=== PATIENT | female | born 1935 | race American Indian/Alaskan Native ===

== ENCOUNTER 2020-06-27 13:41 | Emergency (ER) | payer MEDICARE ==
[2020-06-27] MEDS ORDERED: ASPIRIN 325 MG TAB PO ONE (13:54)
[2020-06-27 14:26] LABS: Hematocrit 32.1 % (30.3-42.9); Hemoglobin 10.6 gm/dl (10.1-14.3); Mean Corpuscular HGB Conc 33 % (30-34); Mean Corpuscular Volume 82 fl (79-97); Platelet Count 233 K/mm3 (140-440); Red Blood Count 3.91 M/mm3 (3.65-5.03); Red Cell Distribution Width 18.4 % (13.2-15.2)
--- NOTE | 2020-06-27 14:42 | XRay Report ---
CHEST 1 VIEW INDICATION / CLINICAL INFORMATION: Chest Pain. COMPARISON: 05/05/2020 FINDINGS: SUPPORT DEVICES: None. HEART / MEDIASTINUM: Apparent cardiac enlargement likely secondary to oblique view. No significant ab normality. LUNGS / PLEURA: No significant pulmonary or pleural abnormality. No pneumothorax. ADDITIONAL FINDINGS: No significant additional findings. IMPRESSION: 1. No acute abnormality or significant change allowing for rotation. Signer Name: Helio Amor MD Signed: 06/27/2020 2:38 PM Workstation Name: [id number]
[2020-06-27 14:57] LABS: Blood Urea Nitrogen 17 mg/dL (7-17); Calcium 9.4 mg/dL (8.4-10.2); Hemolysis Index 0
[2020-06-27 15:07] LABS: BUN/Creatinine Ratio 24
[2020-06-27 15:12] LABS: Basophils % (Auto) 0.4 % (0.0-1.8); Eosinophils # (Auto) 0.1 K/mm3 (0.0-0.4); Eosinophils % (Auto) 2.2 % (0.0-4.3); Lymphocytes # (Auto) 0.9 K/mm3 (1.2-5.4); Lymphocytes % (Auto) 17.4 % (13.4-35.0); Monocytes # (Auto) 0.6 K/mm3 (0.0-0.8); Monocytes % (Auto) 11.6 % (0.0-7.3)
[2020-06-27] MEDS ORDERED: ASPIRIN 325 MG TAB ONE (19:34)
[2020-06-27 20:28] VITALS: BP 157/84
--- NOTE | 2020-06-27 20:44 | Emergency Department Report ---
ED General Adult HPI - General Chief complaint: Chest Pain Stated complaint: CHEST PAIN/SORENESS Time Seen by Provider: 06/27/20 19:30 Source: patient, family Mode of arrival: Wheelchair Limitations: Physical Limitation - History of Present Illness Initial comments: Patient presents to the emergency department the chief complaint of right-sided chest pain that started on Saturday. Patient states the pain actually got worse on Saturday and states that she initially felt some right-sided chest pain about a week or 2 ago when she pulled a muscle. Patient denies any shortness of breath, abdominal pain, or headache. Patient states she takes Lasix twice daily. -: Gradual Location: chest Radiation: non-radiation Severity scale (0 -10): 1 Quality: aching Consistency: constant Improves with: rest Worsens with: movement Associated Symptoms: denies other symptoms Treatments Prior to Arrival: none - Related Data Home Medications Medication Instructions Recorded Confirmed Last Taken Acetaminophen [Tylenol] 500 mg PO PRN PRN 05/09/20 05/09/20 05/23/20 Furosemide [Lasix TAB] 40 mg PO QDAY 05/09/20 05/09/20 05/23/20 Levothyroxine [Synthroid] 112 mcg PO QAM 05/09/20 05/09/20 05/24/20 06:00 Rosuvastatin Calcium [Crestor] 40 mg PO DAILY 05/09/20 05/09/20 05/23/20 Tamoxifen Citrate 20 mg PO DAILY 05/09/20 05/09/20 05/24/20 06:00 amLODIPine 10 mg PO DAILY 05/09/20 05/09/20 05/23/20 Previous Rx's Medication Instructions Recorded Last Taken Type Celecoxib [celeBREX] 200 mg PO BID #4 capsule 05/24/20 Unknown Rx Gabapentin 300 mg PO BID #4 capsule 05/24/20 Unknown Rx HYDROcodone/APAP 5-325 [[place] 1 each PO Q6HR PRN #10 tablet 05/24/20 Unknown Rx 5-325 mg TAB] Allergies Allergy/AdvReac Type Severity Reaction Status Date / Time No Known Allergies Allergy Verified 06/27/20 13:52 ED Review of Systems ROS: Stated complaint: CHEST PAIN/SORENESS Other details as noted in HPI Constitutional: denies: chills, fever Eyes: denies: eye pain, eye discharge, vision change ENT: denies: ear pain, throat pain Respiratory: denies: cough, shortness of breath, wheezing Cardiovascular: chest pain. 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; good functional status) Hx Liver Disease: No Hx Renal Disease: No Hx Arthritis: Yes Additional medical history: Hypothyroidism - Surgical History Hx Open Heart Surgery: Yes Hx Breast Surgery: Yes Additional Surgical History: Lumpectomy (2014), Triple pass surgery (year unknown) - Social History Smoking Status: Never Smoker Substance Use Type: None - Medications Home Medications: Home Medications Medication Instructions Recorded Confirmed Last Taken Type Acetaminophen [Tylenol] 500 mg PO PRN PRN 05/09/20 05/09/20 05/23/20 History Furosemide [Lasix TAB] 40 mg PO QDAY 05/09/20 05/09/20 05/23/20 History Levothyroxine [Synthroid] 112 mcg PO QAM 05/09/20 05/09/20 05/24/20 06:00 History Rosuvastatin Calcium [Crestor] 40 mg PO DAILY 05/09/20 05/09/20 05/23/20 History Tamoxifen Citrate 20 mg PO DAILY 05/09/20 05/09/20 05/24/20 06:00 History amLODIPine 10 mg PO DAILY 05/09/20 05/09/20 05/23/20 History Celecoxib [celeBREX] 200 mg PO BID #4 capsule 05/24/20 Unknown Rx Gabapentin 300 mg PO BID #4 capsule 05/24/20 Unknown Rx HYDROcodone/APAP 5-325 [[place] 1 each PO Q6HR PRN #10 tablet 05/24/20 Unknown Rx 5-325 mg TAB] ED Physical Exam - General Limitations: Physical Limitation General appearance: alert, in no apparent distress - Head Head exam: Present: atraumatic, normocephalic - Eye Eye exam: Present: normal appearance, PERRL, EOMI - ENT ENT exam: Present: mucous membranes moist - Neck Neck exam: Present: normal inspection - Respiratory Respiratory exam: Present: normal lung sounds bilaterally, chest wall tenderness (ttp right chest wall). Absent: respiratory distress - Cardiovascular Cardiovascular Exam: Present: regular rate, normal rhythm. Absent: systolic murmur, diastolic murmur, rubs, gallop - GI/Abdominal GI/Abdominal exam: Present: soft, normal bowel sounds. Absent: distended, tenderness - Extremities Exam Extremities exam: Present: normal inspection, other (Pitting edema) - Back Exam Back exam: Present: normal inspection - Neurological Exam Neurological exam: Present: alert, oriented X3, CN II-XII intact. Absent: motor sensory deficit - Psychiatric Psychiatric exam: Present: normal affect, normal mood - Skin Skin exam: Present: warm, dry, intact, normal color. Absent: rash ED Course Vital Signs 06/27/20 06/27/20 06/27/20 18:54 19:00 19:16 Temperature Pulse Rate 73 73 Respiratory 19 21 Rate Blood Pressure 151/83 151/83 Blood Pressure [Right] O2 Sat by Pulse 99 99 98 Oximetry 06/27/20 06/27/20 06/27/20 19:28 19:30 19:46 Temperature 99.1 F Pulse Rate 75 71 79 Respiratory 19 18 15 Rate Blood Pressure 151/83 151/83 151/83 Blood Pressure 151/83 [Right] O2 Sat by Pulse 99 98 99 Oximetry 06/27/20 06/27/20 20:00 20:16 Temperature Pulse Rate 72 72 Respiratory 21 20 Rate Blood Pressure 157/84 157/84 Blood Pressure [Right] O2 Sat by Pulse 99 100 Oximetry ED Medical Decision Making - Lab Data Result diagrams: 06/27/20 14:13 06/27/20 14:13 Lab Results 06/27/20 06/27/20 06/27/20 Range/Units 14:13 14:13 17:01 WBC 5.1 (4.5-11.0) K/mm3 RBC 3.91 (3.65-5.03) M/mm3 Hgb 10.6 (10.1-14.3) gm/dl Hct 32.1 (30.3-42.9) % MCV 82 (79-97) fl MCH 27 L (28-32) pg MCHC 33 (30-34) % RDW 18.4 H (13.2-15.2) % Plt Count 233 (140-440) K/mm3 Lymph % (Auto) 17.4 (13.4-35.0) % [place] % (Auto) 11.6 H (0.0-7.3) % Eos % (Auto) 2.2 (0.0-4.3) % Baso % (Auto) 0.4 (0.0-1.8) % Lymph # 0.9 L (1.2-5.4) K/mm3 [place] # 0.6 (0.0-0.8) K/mm3 Eos # 0.1 (0.0-0.4) K/mm3 Baso # 0.0 (0.0-0.1) K/mm3 Add Manual Diff Complete Seg Neutrophils % 68.4 (40.0-70.0) % Nucleated RBC % Not Reportable Seg Neutrophils # 3.5 (1.8-7.7) K/mm3 WBC Morphology Not Reportable Hypersegmented Neuts Not Reportable Hyposegmented Neuts Not Reportable Hypogranular Neuts Not Reportable Smudge Cells Not Reportable Toxic Granulation Not Reportable Toxic Vacuolation Not Reportable Dohle Bodies Not Reportable Pelger-Huet Anomaly Not Reportable Lukasz Rods Not Reportable Platelet Estimate Not Reportable Clumped Platelets Not Reportable Plt Clumps, EDTA Not Reportable Large Platelets Not Reportable Giant Platelets Not Reportable Platelet Satelliting Not Reportable Plt Morphology Comment Not Reportable RBC Morphology Not Reportable Dimorphic RBCs Not Reportable Polychromasia Not Reportable Hypochromasia Not Reportable Poikilocytosis Not Reportable Anisocytosis Not Reportable Microcytosis Not Reportable Macrocytosis Not Reportable Spherocytes Not Reportable Pappenheimer Bodies Not Reportable Sickle Cells Not Reportable Target Cells Not Reportable Tear Drop Cells Not Reportable Ovalocytes Not Reportable Helmet Cells Not Reportable Montemayor-Pace Bodies Not Reportable Keldron Rings Not Reportable [place] Cells Not Reportable Bite Cells Not Reportable Crenated Cell Not Reportable Elliptocytes Not Reportable Acanthocytes (Spur) Not Reportable Rouleaux Not Reportable Hemoglobin C Crystals Not Reportable Schistocytes Not Reportable Malaria parasites Not Reportable Shaan Bodies Not Reportable Hem Pathologist Commnt Not Reportable Sodium 143 (137-145) mmol/L Potassium 3.5 L (3.6-5.0) mmol/L Chloride 103.3 (98-107) mmol/L Carbon Dioxide 27 (22-30) mmol/L Anion Gap 16 mmol/L BUN 17 (7-17) mg/dL Creatinine 0.7 (0.6-1.2) mg/dL Estimated GFR > 60 ml/min BUN/Creatinine Ratio 24 % Glucose 115 H (65-100) mg/dL Calcium 9.4 (8.4-10.2) mg/dL Troponin T < 0.010 < 0.010 (0.00-0.029) ng/mL 06/27/20 Range/Units 19:42 WBC (4.5-11.0) K/mm3 RBC (3.65-5.03) M/mm3 Hgb (10.1-14.3) gm/dl Hct (30.3-42.9) % MCV (79-97) fl MCH (28-32) pg MCHC (30-34) % RDW (13.2-15.2) % Plt Count (140-440) K/mm3 Lymph % (Auto) (13.4-35.0) % [place] % (Auto) (0.0-7.3) % Eos % (Auto) (0.0-4.3) % Baso % (Auto) (0.0-1.8) % Lymph # (1.2-5.4) K/mm3 [place] # (0.0-0.8) K/mm3 Eos # (0.0-0.4) K/mm3 Baso # (0.0-0.1) K/mm3 Add Manual Diff Seg Neutrophils % (40.0-70.0) % Nucleated RBC % Seg Neutrophils # (1.8-7.7) K/mm3 WBC Morphology Hypersegmented Neuts Hyposegmented Neuts Hypogranular Neuts Smudge Cells Toxic Granulation Toxic Vacuolation Dohle Bodies Pelger-Huet Anomaly Lukasz Rods Platelet Estimate Clumped Platelets Plt Clumps, EDTA Large Platelets Giant Platelets Platelet Satelliting Plt Morphology Comment RBC Morphology Dimorphic RBCs Polychromasia Hypochromasia Poikilocytosis Anisocytosis Microcytosis Macrocytosis Spherocytes Pappenheimer Bodies Sickle Cells Target Cells Tear Drop Cells Ovalocytes Helmet Cells Montemayor-Pace Bodies Keldron Rings [place] Cells Bite Cells Crenated Cell Elliptocytes Acanthocytes (Spur) Rouleaux Hemoglobin C Crystals Schistocytes Malaria parasites Shaan Bodies Hem Pathologist Commnt Sodium (137-145) mmol/L Potassium (3.6-5.0) mmol/L Chloride (98-107) mmol/L Carbon Dioxide (22-30) mmol/L Anion Gap mmol/L BUN (7-17) mg/dL Creatinine (0.6-1.2) mg/dL Estimated GFR ml/min BUN/Creatinine Ratio % Glucose (65-100) mg/dL Calcium (8.4-10.2) mg/dL Troponin T < 0.010 (0.00-0.029) ng/mL - EKG Data -: EKG Interpreted by Me EKG shows normal: sinus rhythm Rate: normal - Radiology Data Radiology results: report reviewed - Medical Decision Making Discussed results with patient Critical care attestation.: If time is entered above; I have spent that time in minutes in the direct care of this critically ill patient, excluding procedure time. ED Disposition Clinical Impression: Nonspecific chest pain Disposition: DC-01 TO HOME OR SELFCARE Is pt being admited?: No Does the pt Need Aspirin: No Condition: Stable Instructions: Chest Pain (ED), Noncardiac Chest Pain (ED) Additional Instructions: return if worse Referrals: GIANLUCA FUENTESCHRISTOVALFORT HANCOCK MD LONA [Primary Care Provider] - 3-5 Days MARY MADRID MD [Staff Physician] - 3-5 Days Time of Disposition: 20:55
== END 2020-06-27 21:17 | disposition home or self-care (01) ==
LOC: ED 13:41
DX: R07.89 Other chest pain (principal)
CPT/HCPCS: 36415; 71045; 80048; 84484; 85007; 85025; 93005

== ENCOUNTER 2020-07-06 14:16 | Inpatient (IN) | payer MEDICARE ==
[2020-07-06] MEDS ORDERED: ASPIRIN 325 MG TAB PO ONE (14:34)
[2020-07-06 16:13] LABS: Basophils # (Auto) 0.1 K/mm3 (0.0-0.1); Basophils % (Auto) 0.9 % (0.0-1.8); Eosinophils # (Auto) 0.1 K/mm3 (0.0-0.4); Eosinophils % (Auto) 0.9 % (0.0-4.3); Hematocrit 30.7 % (30.3-42.9); Hemoglobin 10.4 gm/dl (10.1-14.3); Lymphocytes # (Auto) 0.8 K/mm3 (1.2-5.4); Mean Corpuscular HGB Conc 34 % (30-34); Mean Corpuscular Volume 83 fl (79-97); Monocytes # (Auto) 0.9 K/mm3 (0.0-0.8); Monocytes % (Auto) 12.6 % (0.0-7.3); Platelet Count 247 K/mm3 (140-440); Red Blood Count 3.73 M/mm3 (3.65-5.03); Red Cell Distribution Width 18.1 % (13.2-15.2)
--- NOTE | 2020-07-06 16:17 | XRay Report ---
CHEST 1 VIEW INDICATION: Chest Pain. COMPARISON: 06/27/2020 FINDINGS: Support devices: None. Heart: Within normal limits. Previous CABG changes are suspected. Lungs/Pleura: No acute air space or interstitial disease. Additional findings: None. IMPRESSION: No acute findings. Signer Name: Osiel Alexis Jr, MD Signed: 07/06/2020 4:13 PM Workstation Name: [id number]
[2020-07-06 16:46] LABS: Alanine Aminotransferase 8 units/L (7-56); Albumin 3.4 g/dL (3.9-5); BUN/Creatinine Ratio 21; Blood Urea Nitrogen 17 mg/dL (7-17); Calcium 9.4 mg/dL (8.4-10.2); Hemolysis Index 3
[2020-07-06 16:47] LABS: Bilirubin,Direct < 0.2 mg/dL (0-0.2)
[2020-07-06] MEDS ORDERED: MORPHINE 4 MG/1 ML INJ IV ONE (21:47)
[2020-07-06] MEDS ORDERED: ONDANSETRON 4 MG/2 ML INJ IV ONE (21:47)
--- NOTE | 2020-07-06 21:51 | Emergency Department Report ---
HPI - General Chief Complaint: Chest Pain Time Seen by Provider: 07/06/20 21:37 - HPI HPI: Room 21 The patient is an 85-year-old female present with a chief complaint of chest pain. Patient states for the past 2 to 3 days she has had substernal chest t ightness and bilateral lower extremity edema. Patient denies shortness of breath, nausea/vomiting or diaphoresis with her chest tightness. Patient denies cough or history of fever. Patient gives her chest tightness a score of 6-7/10. 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; good functional status) Hx Arthritis: Yes Additional medical history: Hypothyroidism - Surgical History Past Surgical History?: Yes Hx Open Heart Surgery: Yes Hx Breast Surgery: Yes Additional Surgical History: Lumpectomy (2014), Triple pass surgery (year unknown) - Family History Family history: no significant - Social History Smoking Status: Never Smoker Substance Use Type: None - Medications Home Medications: Home Medications Medication Instructions Recorded Confirmed Last Taken Type Acetaminophen [Tylenol] 500 mg PO PRN PRN 05/09/20 05/09/20 05/23/20 History Furosemide [Lasix TAB] 40 mg PO QDAY 05/09/20 05/09/20 05/23/20 History Levothyroxine [Synthroid] 112 mcg PO QAM 05/09/20 05/09/20 05/24/20 06:00 History Rosuvastatin Calcium [Crestor] 40 mg PO DAILY 05/09/20 05/09/20 05/23/20 History Tamoxifen Citrate 20 mg PO DAILY 05/09/20 05/09/20 05/24/20 06:00 History amLODIPine 10 mg PO DAILY 05/09/20 05/09/20 05/23/20 History Celecoxib [celeBREX] 200 mg PO BID #4 capsule 05/24/20 Unknown Rx Gabapentin 300 mg PO BID #4 capsule 05/24/20 Unknown Rx HYDROcodone/APAP 5-325 [[place] 1 each PO Q6HR PRN #10 tablet 05/24/20 Unknown Rx 5-325 mg TAB] traMADoL [Ultram] 50 mg PO Q6HR PRN #15 tablet 06/27/20 Unknown Rx ED Review of Systems ROS: Stated complaint: BODY PAIN Other details as noted in HPI Constitutional: no symptoms reported. denies: diaphoresis, fever Respiratory: denies: shortness of breath Cardiovascular: chest pain Endocrine: no symptoms reported Gastrointestinal: denies: nausea, vomiting Physical Exam - Physical Exam Vital Signs: Vital Signs 07/06/20 07/06/20 14:34 19:00 Temperature 97.8 F Pulse Rate 96 H 87 Respiratory 20 18 Rate Blood Pressure 153/70 170/80 [Right] O2 Sat by Pulse 98 100 Oximetry Physical Exam: GENERAL: The patient is well-developed well-nourished female lying on stretcher not appearing to be in acute distress. [] HEENT: Normocephalic. Atraumatic. Extraocular motions are intact. Patient has moist mucous membranes. NECK: Supple. Trachea midline CHEST/LUNGS: Clear to auscultation. There is no respiratory distress noted. HEART/CARDIOVASCULAR: Regular. There is no tachycardia. There is a 5/6 systolic murmur (patient states she has a history of heart murmur) ABDOMEN: Abdomen is soft, nontender. Patient has normal bowel sounds. There is no abdominal distention. SKIN: There is no rash. There is 2+ bilateral lower extremity pitting edema. There is no diaphoresis. NEURO: The patient is awake, alert, and oriented. The patient is cooperative. The patient has normal speech MUSCULOSKELETAL: There is no evidence of acute injury. ED Course Vital Signs 07/06/20 07/06/20 14:34 19:00 Temperature 97.8 F Pulse Rate 96 H 87 Respiratory 20 18 Rate Blood Pressure 153/70 170/80 [Right] O2 Sat by Pulse 98 100 Oximetry ED Medical Decision Making - Lab Data Result diagrams: 07/06/20 15:56 07/06/20 15:56 Laboratory Tests 07/06/20 07/06/20 07/06/20 15:56 15:56 18:10 WBC 7.0 RBC 3.73 Hgb 10.4 Hct 30.7 MCV 83 MCH 28 MCHC 34 RDW 18.1 H Plt Count 247 Lymph % (Auto) 11.0 L [place] % (Auto) 12.6 H Eos % (Auto) 0.9 Baso % (Auto) 0.9 Lymph # 0.8 L [place] # 0.9 H Eos # 0.1 Baso # 0.1 Seg Neutrophils % 74.6 H Seg Neutrophils # 5.2 Sodium 137 Potassium 3.8 Chloride 98.8 Carbon Dioxide 27 Anion Gap 15 BUN 17 Creatinine 0.8 Estimated GFR > 60 BUN/Creatinine Ratio 21 Glucose 134 H Calcium 9.4 Total Bilirubin 0.20 Direct Bilirubin < 0.2 AST 20 ALT 8 Alkaline Phosphatase 88 Troponin T < 0.010 < 0.010 NT-Pro-B Natriuret Pep Total Protein 7.6 Albumin 3.4 L Albumin/Globulin Ratio 0.8 07/06/20 07/06/20 18:10 21:54 WBC RBC Hgb Hct MCV MCH MCHC RDW Plt Count Lymph % (Auto) [place] % (Auto) Eos % (Auto) Baso % (Auto) Lymph # [place] # Eos # Baso # Seg Neutrophils % Seg Neutrophils # Sodium Potassium Chloride Carbon Dioxide Anion Gap BUN Creatinine Estimated GFR BUN/Creatinine Ratio Glucose Calcium Total Bilirubin Direct Bilirubin AST ALT Alkaline Phosphatase Troponin T < 0.010 NT-Pro-B Natriuret Pep 554.4 Total Protein Albumin Albumin/Globulin Ratio - EKG Data -: EKG Interpreted by Me EKG shows normal: sinus rhythm Rate: normal - EKG Data When compared to previous EKG there are: previous EKG unavailable Interpretation: other (No ischemic changes seen) - Radiology Data Radiology results: report reviewed (Chest x-ray), image reviewed (Chest x-ray) interpreted by me: Chest x-ray-no focal infiltrates, no pneumothorax [facility] [address] [place] [address] XRay Report Signed Patient: JACKIE SRIVASTAVA MR#: [id number] : 1935 Acct:[id number] Age/Sex: 85 / F ADM Date: 07/06/20 Loc: ED Attending Dr: Ordering Physician: ETTA SMITH MD Date of Service: 07/06/20 Procedure(s): XR chest 1V ap Accession Number(s): [id number] cc: ED MD LUIS Fluoro Time In Minutes: CHEST 1 VIEW INDICATION: Chest Pain. COMPARISON: 06/27/2020 FINDINGS: Support devices: None. Heart: Within normal limits. Previous CABG changes are suspected. Lungs/Pleura: No acute air space or interstitial disease. Additional findings: None. IMPRESSION: No acute findings. Signer Name: Osiel Alexis Jr, MD Signed: 07/06/2020 4:13 PM Workstation Name: [id number] Transcribed By: TTR Dictated By: OSIEL ALEXIS JR, MD Electronically Authenticated By: OSIEL ALEXIS JR, MD Signed Date/Time: 07/06/20 161 DD/ 11 TD/TT: - Differential Diagnosis ACS, pericarditis, CHF, GERD Critical care attestation.: If time is entered above; I have spent that time in minutes in the direct care of this critically ill patient, excluding procedure time. ED Disposition Clinical Impression: Chest pain Disposition: OP ADMIT IP TO THIS HOSP Is pt being admited?: Yes Does the pt Need Aspirin: Yes Condition: Fair Instructions: Chest Pain (ED) Referrals: PRIMARY CARE, [Primary Care Provider] - 3-5 Days Time of Disposition: 22:25 (Hospitalist paged (Dr Perez))
[2020-07-07] MEDS ORDERED: NITROGLYCERIN 2% OINT 1 GM TP ONE ×2 (00:08→00:42)
[2020-07-07] MEDS ORDERED: NITROGLYCERIN 0.4 MG TAB SUBL SL PRN (01:41)
[2020-07-07] MEDS ORDERED: ONDANSETRON 4 MG/2 ML INJ IV PRN (01:42)
[2020-07-07] MEDS: HEPARIN 5,000 UNIT/1 ML VIAL SUB-Q SCH ×3 (02:42→21:24)
--- NOTE | 2020-07-07 04:14 | History and Physical Report ---
History of Present Illness Date of examination: 07/07/20 Date of admission: 07/07/20 00:11 Chief complaint: CHEST PAIN History of present illness: History of presenting illness, patient is an 85-year-old female who has been having substernal chest tightness going on for few days and associated with ankle edema, there is no history of shortness of breath, fever or chills,cough, nausea or vomiting, or diaphoresis Past History Past Medical History: arthritis, CAD, hypertension, hypothyroidism Past Surgical History: CABG, Other (LUMPECTOMY) Medications and Allergies Allergies Allergy/AdvReac Type Severity Reaction Status Date / Time No Known Allergies Allergy Verified 06/27/20 13:52 Home Medications Medication Instructions Recorded Confirmed Last Taken Type Acetaminophen [Tylenol] 500 mg PO PRN PRN 05/09/20 05/09/20 05/23/20 History Furosemide [Lasix TAB] 40 mg PO QDAY 05/09/20 05/09/20 05/23/20 History Levothyroxine [Synthroid] 112 mcg PO QAM 05/09/20 05/09/20 05/24/20 06:00 History Rosuvastatin Calcium [Crestor] 40 mg PO DAILY 05/09/20 05/09/20 05/23/20 History Tamoxifen Citrate 20 mg PO DAILY 05/09/20 05/09/20 05/24/20 06:00 History amLODIPine 10 mg PO DAILY 05/09/20 05/09/20 05/23/20 History Celecoxib [celeBREX] 200 mg PO BID #4 capsule 05/24/20 Unknown Rx Gabapentin 300 mg PO BID #4 capsule 05/24/20 Unknown Rx HYDROcodone/APAP 5-325 [[place] 1 each PO Q6HR PRN #10 tablet 05/24/20 Unknown Rx 5-325 mg TAB] traMADoL [Ultram] 50 mg PO Q6HR PRN #15 tablet 06/27/20 Unknown Rx Active Meds: Active Medications Acetaminophen (Tylenol) 650 mg PO Q4H PRN PRN Reason: Headache Aspirin (Aspirin) 325 mg PO QDAY JESSICA Heparin Sodium (Porcine) (Heparin) 5,000 unit SUB-Q Q12HR JESSICA Last Admin: 07/07/20 02:42 Dose: 5,000 unit Documented by: Morphine Sulfate (Morphine) 2 mg IV Q3H PRN PRN Reason: Pain, Moderate (4-6) Nitroglycerin (Nitro-Bid 2%) 0.5 inch TP QIDNTG JESSICA; Protocol Nitroglycerin (Nitrostat) 0.4 mg SL .Q5MIN PRN PRN Reason: Chest Pain Ondansetron HCl (Zofran) 4 mg IV Q8H PRN PRN Reason: Nausea And Vomiting Review of Systems Constitutional: weakness, no weight loss, no weight gain, no fever, no chills, no sweats, no night sweats, no anorexia, no fatigue, no malaise Eyes: bilateral: other (NO BILATERAL EYE SYMPTOM) Ears, nose, mouth and throat: no ear pain, no nasal congestion, no nasal discharge, no mouth pain, no dysphagia, no hoarseness, no sore throat Breasts: deferred Cardiovascular: chest pain, edema, no orthopnea, no palpitations, no rapid/irregular heart beat, no syncope, no lightheadedness, no shortness of breath Respiratory: no cough, no shortness of breath, no dyspnea on exertion, no congestion, no wheezing Gastrointestinal: no abdominal pain, no nausea, no vomiting, no constipation, no coffee ground emesis, no hematochezia Genitourinary Female: no Menstruation: postmenopausal Rectal: no pain Musculoskeletal: no neck stiffness, no neck pain Integumentary: no rash, no pruritis, no redness, no sores, no jaundice, no boils, no lesions, no acne Neurological: weakness, no seizures, no syncope, no tremors, no ataxia, no vertigo, no headaches, no convulsions Psychiatric: no anxiety, no insomnia, no suicidal ideation, no depression Endocrine: no cold intolerance, no heat intolerance, no polyphagia, no polydipsia, no polyuria, no nocturia, no flushing, no palpatations Hematologic/Lymphatic: no easy bruising, no easy bleeding Allergic/Immunologic: no persistent infections, no anaphylaxis Exam - Constitutional Vitals: Temp Pulse Resp BP Pulse Ox 97.8 F 95 H 21 142/73 96 07/06/20 14:34 07/07/20 01:52 07/07/20 00:30 07/07/20 00:43 07/07/20 00:30 General appearance: Present: mild distress - EENT Eyes: Present: PERRL, EOM intact ENT: hearing intact, clear oral mucosa, dentition normal - Neck Neck: Present: supple, normal ROM. Absent: enlarged thyroid, carotid bruits - Respiratory Respiratory effort: normal - Cardiovascular Rhythm: regular Heart Sounds: Present: S1 & S2. Absent: gallop, systolic murmur, diastolic murmur, click - Extremities Extremities: no ischemia, No edema Peripheral Pulses: within normal limits - Abdominal General gastrointestinal: Present: soft, non-tender, non-distended. Absent: tender, distended, rigid, mass Female genitourinary: Present: deferred - Rectal Rectal Exam: deferred - Integumentary Integumentary: Present: clear, warm, dry - Musculoskeletal Musculoskeletal: strength equal bilaterally - Psychiatric Psychiatric: appropriate mood/affect - Neurologic Neurologic: CNII-XII intact HEART Score - HEART Score Risk factors: 1-2 risk factors Troponin: Troponin T < 0.010 ng/mL (0.00-0.029) 07/06/20 21:54 Troponin: < normal limit - Critical Actions Critical Actions: 0-3 pts:0.9-1.7%risk of adverse cardiac event.Candidate for discharge Results - Labs CBC & Chem 7: 07/06/20 15:56 07/06/20 15:56 Labs: Laboratory Last Values WBC 7.0 K/mm3 (4.5-11.0) 07/06/20 15:56 RBC 3.73 M/mm3 (3.65-5.03) 07/06/20 15:56 Hgb 10.4 gm/dl (10.1-14.3) 07/06/20 15:56 Hct 30.7 % (30.3-42.9) 07/06/20 15:56 MCV 83 fl (79-97) 07/06/20 15:56 MCH 28 pg (28-32) 07/06/20 15:56 MCHC 34 % (30-34) 07/06/20 15:56 RDW 18.1 % (13.2-15.2) H 07/06/20 15:56 Plt Count 247 K/mm3 (140-440) 07/06/20 15:56 Lymph % (Auto) 11.0 % (13.4-35.0) L 07/06/20 15:56 [place] % (Auto) 12.6 % (0.0-7.3) H 07/06/20 15:56 Eos % (Auto) 0.9 % (0.0-4.3) 07/06/20 15:56 Baso % (Auto) 0.9 % (0.0-1.8) 07/06/20 15:56 Lymph # 0.8 K/mm3 (1.2-5.4) L 07/06/20 15:56 [place] # 0.9 K/mm3 (0.0-0.8) H 07/06/20 15:56 Eos # 0.1 K/mm3 (0.0-0.4) 07/06/20 15:56 Baso # 0.1 K/mm3 (0.0-0.1) 07/06/20 15:56 Seg Neutrophils % 74.6 % (40.0-70.0) H 07/06/20 15:56 Seg Neutrophils # 5.2 K/mm3 (1.8-7.7) 07/06/20 15:56 Sodium 137 mmol/L (137-145) 07/06/20 15:56 Potassium 3.8 mmol/L (3.6-5.0) 07/06/20 15:56 Chloride 98.8 mmol/L (98-107) 07/06/20 15:56 Carbon Dioxide 27 mmol/L (22-30) 07/06/20 15:56 Anion Gap 15 mmol/L 07/06/20 15:56 BUN 17 mg/dL (7-17) 07/06/20 15:56 Creatinine 0.8 mg/dL (0.6-1.2) 07/06/20 15:56 Estimated GFR > 60 ml/min 07/06/20 15:56 BUN/Creatinine Ratio 21 % 07/06/20 15:56 Glucose 134 mg/dL (65-100) H 07/06/20 15:56 Calcium 9.4 mg/dL (8.4-10.2) 07/06/20 15:56 Total Bilirubin 0.20 mg/dL (0.1-1.2) 07/06/20 15:56 Direct Bilirubin < 0.2 mg/dL (0-0.2) 07/06/20 15:56 AST 20 units/L (5-40) 07/06/20 15:56 ALT 8 units/L (7-56) 07/06/20 15:56 Alkaline Phosphatase 88 units/L (35-129) 07/06/20 15:56 Troponin T < 0.010 ng/mL (0.00-0.029) 07/06/20 21:54 NT-Pro-B Natriuret Pep 554.4 pg/mL (0-900) 07/06/20 18:10 Total Protein 7.6 g/dL (6.3-8.2) 07/06/20 15:56 Albumin 3.4 g/dL (3.9-5) L 07/06/20 15:56 Albumin/Globulin Ratio 0.8 % 07/06/20 15:56 Moncada/IV: IV Catheter Type [Right INT / Saline Lock Antecubital] Assessment and Plan - Patient Problems (1) Chest pain Current Visit: Yes Status: Acute Plan to address problem: 1. TELEMETRY OBSERVATION 2. SERIAL CARDIAC ENZYMES 3. NPO 4. LEXISCAN STRESS TEST 5. I.V MORPHINE FOR PAIN 6. I.V ZOFRAN FOR NAUSEA AND VOMITING 7. ASPIRIN PO 8. TYLENOL FOR HEADACHE 9 NITROGLYCERIN PASTE AND SUB LIGUAL
[2020-07-07] MEDS: MORPHINE 2 MG/1 ML INJ IV PRN ×3 (06:03→12:10)
[2020-07-07] MEDS: NITROGLYCERIN 2% OINT 1 GM TP SCH ×4 (06:05→17:50)
[2020-07-07 06:38] LABS: Creatine Kinase MB 1.2 ng/mL (0.0-4.0)
[2020-07-07] MEDS ORDERED: REGADENOSON 0.4 MG/5 ML INJ IV ONE ×2 (08:51→08:56)
[2020-07-07] MEDS: ASPIRIN 325 MG TAB PO SCH (12:09)
--- NOTE | 2020-07-07 13:52 | Treadmill Report ---
THALLIUM STRESS TEST REPORT LEFT VENTRICLE: Left ventricular chamber size is within normal spread. Perfusion study demonstrates normal apical thinning, otherwise homogeneous uptake of the tracer in all segments. Gated analysis demonstrates normal left ventricular systolic function, ejection fraction 70%. CONCLUSION: Normal myocardial perfusion study. JOB# [id number] CA/NTS
[2020-07-07 16:17] LABS: Creatine Kinase MB < 1.0 ng/mL (0.0-4.0)
[2020-07-07] MEDS: ACETAMINOPHEN 325 MG TAB PO PRN ×2 (16:34→21:44)
--- NOTE | 2020-07-07 17:07 | Progress Note ---
Assessment and Plan Assessment and plan: --Febrile illness: T-max: 101 F High suspicion for COVID Antipyretics, IV fluids, blood and urine cultures Possible UTI , empiric antibiotics with Rocephin and supportive care We will rule out of COVID-19 Contact and droplet isolation Patient has multiple risk factors --Chest pain: Evaluate for acute coronary syndrome Patient had stress test today; normal myocardial perfusion study EF 70% cardiology echo, Chest x-ray no acute abnormality noted . Aspirin and statin --History of coronary artery disease status post CABG: Continue current cardiac medications --Hypertension; moderate control Continue current antihypertensives and PRN medications --Dyslipidemia; continue statin Low-cholesterol diet --Hypothyroidism; Synthroid Continue current management --Obesity; BMI 32.2 Counseling patient may need weight reduction when stable --DVT prophylaxis; Lovenox --Full CODE STATUS We will closely monitor the patient and adjust management as needed Plan of care reviewed with the patient and her nurse We will transfer the patient to [place] [id number] floor MedSur I discussed with patient's nurse History Interval history: I have seen and examined the patient at the bedside this morning Patient's chart and medications reviewed Patient was admitted with chest pain, underwent stress test Negative for ischemia, symptoms significantly improved Patient however spiked fever, temperature 101 F Vital signs reviewed Hospitalist Physical - Constitutional Vitals: Temp Pulse Resp BP Pulse Ox 101.7 F H 103 H 17 168/90 96 07/07/20 16:08 07/07/20 16:08 07/07/20 16:08 07/07/20 16:08 07/07/20 16:08 General appearance: Present: mild distress, well-nourished (Febrile), obese, other - EENT Eyes: Present: PERRL, EOM intact - Neck Neck: Present: supple, normal ROM - Respiratory Respiratory effort: normal Respiratory: bilateral: diminished, negative: rales, rhonchi, wheezing - Cardiovascular Rhythm: regular Heart Sounds: Present: S1 & S2 - Extremities Extremities: no ischemia, No edema Peripheral Pulses: within normal limits - Abdominal General gastrointestinal: soft, non-tender, non-distended, normal bowel sounds - Integumentary Integumentary: Present: clear, warm - Psychiatric Psychiatric: appropriate mood/affect, cooperative - Neurologic Neurologic: moves all extremities HEART Score - HEART Score Risk factors: 1-2 risk factors Troponin: Troponin T < 0.010 ng/mL (0.00-0.029) 07/07/20 14:57 Troponin: < normal limit - Critical Actions Critical Actions: 0-3 pts:0.9-1.7%risk of adverse cardiac event.Candidate for discharge Results - Labs CBC & Chem 7: 07/06/20 15:56 07/06/20 15:56 Labs: Laboratory Last Values WBC 7.0 K/mm3 (4.5-11.0) 07/06/20 15:56 RBC 3.73 M/mm3 (3.65-5.03) 07/06/20 15:56 Hgb 10.4 gm/dl (10.1-14.3) 07/06/20 15:56 Hct 30.7 % (30.3-42.9) 07/06/20 15:56 MCV 83 fl (79-97) 07/06/20 15:56 MCH 28 pg (28-32) 07/06/20 15:56 MCHC 34 % (30-34) 07/06/20 15:56 RDW 18.1 % (13.2-15.2) H 07/06/20 15:56 Plt Count 247 K/mm3 (140-440) 07/06/20 15:56 Lymph % (Auto) 11.0 % (13.4-35.0) L 07/06/20 15:56 [place] % (Auto) 12.6 % (0.0-7.3) H 07/06/20 15:56 Eos % (Auto) 0.9 % (0.0-4.3) 07/06/20 15:56 Baso % (Auto) 0.9 % (0.0-1.8) 07/06/20 15:56 Lymph # 0.8 K/mm3 (1.2-5.4) L 07/06/20 15:56 [place] # 0.9 K/mm3 (0.0-0.8) H 07/06/20 15:56 Eos # 0.1 K/mm3 (0.0-0.4) 07/06/20 15:56 Baso # 0.1 K/mm3 (0.0-0.1) 07/06/20 15:56 Seg Neutrophils % 74.6 % (40.0-70.0) H 07/06/20 15:56 Seg Neutrophils # 5.2 K/mm3 (1.8-7.7) 07/06/20 15:56 Sodium 137 mmol/L (137-145) 07/06/20 15:56 Potassium 3.8 mmol/L (3.6-5.0) 07/06/20 15:56 Chloride 98.8 mmol/L (98-107) 07/06/20 15:56 Carbon Dioxide 27 mmol/L (22-30) 07/06/20 15:56 Anion Gap 15 mmol/L 07/06/20 15:56 BUN 17 mg/dL (7-17) 07/06/20 15:56 Creatinine 0.8 mg/dL (0.6-1.2) 07/06/20 15:56 Estimated GFR > 60 ml/min 07/06/20 15:56 BUN/Creatinine Ratio 21 % 07/06/20 15:56 Glucose 134 mg/dL (65-100) H 07/06/20 15:56 Calcium 9.4 mg/dL (8.4-10.2) 07/06/20 15:56 Total Bilirubin 0.20 mg/dL (0.1-1.2) 07/06/20 15:56 Direct Bilirubin < 0.2 mg/dL (0-0.2) 07/06/20 15:56 AST 20 units/L (5-40) 07/06/20 15:56 ALT 8 units/L (7-56) 07/06/20 15:56 Alkaline Phosphatase 88 units/L (35-129) 07/06/20 15:56 Total Creatine Kinase 64 units/L (30-135) 07/07/20 14:57 CK-MB (CK-2) < 1.0 ng/mL (0.0-4.0) 07/07/20 14:57 CK-MB (CK-2) Rel Index 1.5 (0-4) 07/07/20 14:57 Troponin T < 0.010 ng/mL (0.00-0.029) 07/07/20 14:57 NT-Pro-B Natriuret Pep 554.4 pg/mL (0-900) 07/06/20 18:10 Total Protein 7.6 g/dL (6.3-8.2) 07/06/20 15:56 Albumin 3.4 g/dL (3.9-5) L 07/06/20 15:56 Albumin/Globulin Ratio 0.8 % 07/06/20 15:56 Moncada/IV: IV Catheter Type [Right INT / Saline Lock Antecubital] Active Medications - Current Medications Current Medications: Generic Name Dose Route Start Last Admin Trade Name Freq PRN Reason Stop Dose Admin Acetaminophen 650 mg 07/07/20 01:43 07/07/20 16:34 Tylenol PO 650 mg Q4H PRN Administration Headache Aspirin 325 mg 07/07/20 10:00 07/07/20 12:09 Aspirin PO 325 mg QDAY JESSICA Administration Heparin Sodium (Porcine) 5,000 unit 07/07/20 01:45 07/07/20 12:10 Heparin SUB-Q 5,000 unit Q12HR JESSICA Administration Morphine Sulfate 2 mg 07/07/20 01:42 07/07/20 12:10 Morphine IV 2 mg Q3H PRN Administration Pain, Moderate (4-6) Nitroglycerin 0.5 inch 07/07/20 06:00 07/07/20 16:27 Nitro-Bid 2% TP Not Given QIDNTG COUNT INCLUDES THE [facility] Protocol Nitroglycerin 0.4 mg 07/07/20 01:41 Nitrostat SL .Q5MIN PRN Chest Pain Ondansetron HCl 4 mg 07/07/20 01:42 Zofran IV Q8H PRN Nausea And Vomiting
[2020-07-07 20:25] LABS: C-Reactive Protein 13.2 mg/dL (0.00-1.30)
[2020-07-07] MEDS: GABAPENTIN 300 MG CAP PO SCH (21:24)
[2020-07-07] MEDS: traMADol 50 MG TAB PO PRN (21:24)
[2020-07-08] MEDS: NITROGLYCERIN 2% OINT 1 GM TP SCH ×4 (06:59→18:47)
[2020-07-08] MEDS: ASPIRIN 325 MG TAB PO SCH (10:09)
[2020-07-08] MEDS: FUROSEMIDE 40 MG TAB PO SCH (10:09)
[2020-07-08] MEDS: amLODIPine 10 MG TAB PO SCH (10:09)
[2020-07-08] MEDS: HEPARIN 5,000 UNIT/1 ML VIAL SUB-Q SCH ×2 (10:09→21:00)
[2020-07-08] MEDS: GABAPENTIN 300 MG CAP PO SCH ×2 (10:09→21:00)
[2020-07-08] MEDS: traMADol 50 MG TAB PO PRN ×2 (10:10→21:00)
[2020-07-08] MEDS: cefTRIAXone/NS 1 GM/50 ML 1 GM/50 ML BAG IV SCH (10:11)
[2020-07-08] MEDS: TAMOXIFEN CITRATE 20 MG PO SCH (10:15)
[2020-07-08] MEDS: NON-FORMULARY EACH (Rosuvastatin Calcium [Crestor] 40 MG) PO SCH (10:15)
[2020-07-08] MEDS: LEVOTHYROXINE 112 MCG TAB PO SCH (10:15)
[2020-07-08] MEDS ORDERED: SODIUM CHLORIDE 0.9% 250ML 250 ML ONE (10:21)
--- NOTE | 2020-07-08 16:18 | Consultation ---
History of Present Illness - Reason for Consult Consult date: 07/08/20 - History of Present Illness 85-year-old female past medical history arthritis, CAD, hypertension admitted to the hospital with substernal chest tightness. She also complains of ankle edema, and her symptoms began 3 days prior to admission. She otherwise denies any symptoms such as shortness of breath, fevers, chills. Febrile to 101.7 with a normal white count. COVID-19 testing negative. Currently seeing ceftriaxone. Blood cultures currently pending. Imaging personally reviewed: Chest x-ray: No acute abnormality Review of Systems: Bold if positive, otherwise negative General: fevers, chills, rigors HEENT: visual disturbance, diplopia, eye pain Respiratory: cough, sputum, hemoptysis, shortness of breath Cardiovascular: chest pain, syncope Gastrointestinal: nausea, vomiting, diarrhea, abdominal pain Genitourinary: dysuria, hematuria, flank pain Musculoskeletal: neck pain, back pain, joint pain, edema Neurologic: headaches, seizures Hematologic: easy bruising or bleeding Endocrine: night sweats, acute weight loss Skin: rash, jaundice, redness Psychiatric: suicidal, homicidal ideation Past History Past Medical History: arthritis, CAD, hypertension, hypothyroidism Past Surgical History: CABG, Other (LUMPECTOMY) Medications and Allergies Allergies Allergy/AdvReac Type Severity Reaction Status Date / Time No Known Allergies Allergy Verified 06/27/20 13:52 Home Medications Medication Instructions Recorded Confirmed Last Taken Type Acetaminophen [Tylenol] 500 mg PO PRN PRN 05/09/20 05/09/20 05/23/20 History Furosemide [Lasix TAB] 40 mg PO QDAY 05/09/20 05/09/20 05/23/20 History Levothyroxine [Synthroid] 112 mcg PO QAM 05/09/20 05/09/20 05/24/20 06:00 History Rosuvastatin Calcium [Crestor] 40 mg PO DAILY 05/09/20 05/09/20 05/23/20 History Tamoxifen Citrate 20 mg PO DAILY 05/09/20 05/09/20 05/24/20 06:00 History amLODIPine 10 mg PO DAILY 05/09/20 05/09/20 05/23/20 History Celecoxib [celeBREX] 200 mg PO BID #4 capsule 05/24/20 Unknown Rx Gabapentin 300 mg PO BID #4 capsule 05/24/20 Unknown Rx HYDROcodone/APAP 5-325 [[place] 1 each PO Q6HR PRN #10 tablet 05/24/20 Unknown Rx 5-325 mg TAB] traMADoL [Ultram] 50 mg PO Q6HR PRN #15 tablet 06/27/20 Unknown Rx Active Meds: Active Medications Acetaminophen (Tylenol) 650 mg PO Q4H PRN PRN Reason: Headache Last Admin: 07/07/20 21:44 Dose: 650 mg Documented by: Amlodipine Besylate (Amlodipine) 10 mg PO DAILY [facility] Last Admin: 07/08/20 10:09 Dose: 10 mg Documented by: Aspirin (Aspirin) 325 mg PO QDAY [facility] Last Admin: 07/08/20 10:09 Dose: 325 mg Documented by: Furosemide (Lasix) 40 mg PO QDAY [facility] Last Admin: 07/08/20 10:09 Dose: 40 mg Documented by: Gabapentin (Gabapentin) 300 mg PO BID [facility] Last Admin: 07/08/20 10:09 Dose: 300 mg Documented by: Heparin Sodium (Porcine) (Heparin) 5,000 unit SUB-Q Q12HR [facility] Last Admin: 07/08/20 10:09 Dose: 5,000 unit Documented by: Ceftriaxone Sodium (Rocephin/Ns 1 Gm/50 Ml) 1 gm in 50 mls @ 100 mls/hr IV Q24HR [facility]; Protocol Last Admin: 07/08/20 10:11 Dose: 100 mls/hr Documented by: Levothyroxine Sodium (Synthroid) 112 mcg PO QAM@0600 [facility] Last Admin: 07/08/20 10:15 Dose: 112 mcg Documented by: Miscellaneous Medication (Rosuvastatin Calcium [Crestor]) 40 mg PO DAILY [facility] Last Admin: 07/08/20 10:15 Dose: 40 mg Documented by: Miscellaneous Medication (Tamoxifen Citrate [Tamoxifen Citrate]) 20 mg PO DAILY [facility] Last Admin: 07/08/20 10:15 Dose: 20 mg Documented by: Morphine Sulfate (Morphine) 2 mg IV Q3H PRN PRN Reason: Pain, Moderate (4-6) Last Admin: 07/07/20 12:10 Dose: 2 mg Documented by: Nitroglycerin (Nitro-Bid 2%) 0.5 inch TP QIDNTG [facility]; Protocol Last Admin: 07/08/20 13:47 Dose: 0.5 inch Documented by: Nitroglycerin (Nitrostat) 0.4 mg SL .Q5MIN PRN PRN Reason: Chest Pain Ondansetron HCl (Zofran) 4 mg IV Q8H PRN PRN Reason: Nausea And Vomiting Tramadol HCl (Ultram) 50 mg PO Q6HR PRN PRN Reason: PAIN Last Admin: 07/08/20 10:10 Dose: 50 mg Documented by: Physical Examination - Physical Exam Narrative exam: Physical exam deferred due to PPE conservation strategy. Please refer to primary team's note. - Constitutional Vitals: Vital Signs Temp Pulse Resp BP Pulse Ox 100.1 F H 90 18 105/61 93 07/08/20 11:47 07/08/20 11:47 07/08/20 11:47 07/08/20 11:47 07/08/20 11:47 Temperature -Last 24 Hours Temperature 100.1 F Temperature 98.9 F Temperature 98.9 F Results - Labs CBC & Chem 7: 07/06/20 15:56 07/06/20 15:56 Labs: Abnormal lab results 07/07/20 07/07/20 Range/Units 19:11 19:11 D-Dimer 1419.53 H (0-234) ng/mlDDU Lactate Dehydrogenase 274 H (91-180) units/L C-Reactive Protein 13.20 H (0.00-1.30) mg/dL Assessment and Plan Cultures: Blood culture 07/07/2020 pending A/P: 85-year-old female past medical history arthritis, CAD, hypertension admitted with chest pains and found to be febrile. #Chest pain: Concern for PE given elevated d-dimer. Pending CT angio of the chest, however on first attempt patient had no IV access available. #COVID-19 PUI: Given fevers and possible PE recommend retesting for COVID-19. The symptoms could simply related to a pulmonary lesion, given the prevalence of the interplay of these two recommend ensuring she is not covered infected. #Fevers: As above Recs: -Ordered procalcitonin for a.m. -Obtain CT angio of the chest when IV access available. -Retest for COVID-19. -Continue ceftriaxone for now, likely to stop shortly if other etiology found Dr. Hernandez covering this weekend Thank you for the consult, we will continue to follow. Javon Stern MD [facility] M: [phone] O: [phone] F: [phone]
--- NOTE | 2020-07-08 16:34 | Progress Note ---
Assessment and Plan - Patient Problems (1) Person under investigation for COVID-19 Current Visit: Yes Status: Ruled-out Plan to address problem: - High suspicion for COVID given febrile and elevated markers; Possible UTI , empiric antibiotics with Rocephin - Antipyretics - 07/08 blood and urine cultures pending (2) Chest pain Current Visit: Yes Status: Acute Plan to address problem: - 07/07 stress test shows normal myocardial perfusion study - 07/07 Echo shows EF 70% - 07/06 Chest x-ray shows no acute abnormality - ASA and statin therapy - PRN EKG (3) Febrile Current Visit: Yes Status: Acute Plan to address problem: - Febrile to tmax 101.7 on 07/07 - Supportive care - BC and UC pending - COVID PCR (-) - On antibiotic therapy (4) Hypertension Current Visit: Yes Status: Chronic Plan to address problem: - Continue current antihypertensives and PRN medications - BP monitoring per protocol (5) Hypothyroidism Current Visit: Yes Status: Chronic Plan to address problem: - Continue home levothyroxine (6) CAD (coronary artery disease) Current Visit: Yes Status: Acute Plan to address problem: - Continue home statin therapy (7) Obesity Current Visit: Yes Status: Acute Plan to address problem: - Weight loss counseling provided (8) DVT prophylaxis Current Visit: No Status: Acute Plan to address problem: - SCDS to BLE while in bed - Heparin subq History Interval history: This is a 59-year-old female with arthritis, CAD, HTN, hypothyroidism, 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 In the emergency department labs were insignificant other than a BNP of 255 and her chest x-ray was negative for any acute process. She was scheduled for a Lexiscan on 07/07. On 07/07 she was febrile and given her symptoms she was transferred to the [facility] floor to rule out COVID 19. Her d-dimer was elevated at 1419 along with other COVID related labs. This morning a CTA chest was ordered however there is a delay performing the test related to lack of proper IV access. This morning infectious disease was consulted. -07/07: Lexiscan, transfer to [facility] for rule out COVID 19 -07/08: COVID-19 PCR negative Hospitalist Physical - Constitutional Vitals: Temp Pulse Resp BP Pulse Ox 100.1 F H 90 18 105/61 93 07/08/20 11:47 07/08/20 11:47 07/08/20 11:47 07/08/20 11:47 07/08/20 11:47 General appearance: Present: no acute distress, well-nourished (Febrile), obese - EENT Eyes: Present: PERRL, EOM intact ENT: hearing intact - Neck Neck: Present: supple, normal ROM - Respiratory Respiratory effort: normal Respiratory: bilateral: diminished - Cardiovascular Rhythm: regular Heart Sounds: Present: S1 & S2. Absent: systolic murmur, diastolic murmur - Extremities Extremities: no ischemia, pulses intact, pulses symmetrical, normal temperature, normal color, Full ROM Extremity abnormal: edema (To right wrist and right lower extremity) Peripheral Pulses: within normal limits - Abdominal General gastrointestinal: soft, non-tender, non-distended, normal bowel sounds - Integumentary Integumentary: Present: clear, warm, dry - Psychiatric Psychiatric: cooperative - Neurologic Neurologic: CNII-XII intact, no focal deficits, moves all extremities - Allied Health Allied health notes reviewed: nursing HEART Score - HEART Score Risk factors: 1-2 risk factors Troponin: Troponin T < 0.010 ng/mL (0.00-0.029) 07/07/20 14:57 Troponin: < normal limit - Critical Actions Critical Actions: 0-3 pts:0.9-1.7%risk of adverse cardiac event.Candidate for discharge Results - Labs CBC & Chem 7: 07/06/20 15:56 07/06/20 15:56 Labs: Laboratory Last Values WBC 7.0 K/mm3 (4.5-11.0) 07/06/20 15:56 RBC 3.73 M/mm3 (3.65-5.03) 07/06/20 15:56 Hgb 10.4 gm/dl (10.1-14.3) 07/06/20 15:56 Hct 30.7 % (30.3-42.9) 07/06/20 15:56 MCV 83 fl (79-97) 07/06/20 15:56 MCH 28 pg (28-32) 07/06/20 15:56 MCHC 34 % (30-34) 07/06/20 15:56 RDW 18.1 % (13.2-15.2) H 07/06/20 15:56 Plt Count 247 K/mm3 (140-440) 07/06/20 15:56 Lymph % (Auto) 11.0 % (13.4-35.0) L 07/06/20 15:56 [place] % (Auto) 12.6 % (0.0-7.3) H 07/06/20 15:56 Eos % (Auto) 0.9 % (0.0-4.3) 07/06/20 15:56 Baso % (Auto) 0.9 % (0.0-1.8) 07/06/20 15:56 Lymph # 0.8 K/mm3 (1.2-5.4) L 07/06/20 15:56 [place] # 0.9 K/mm3 (0.0-0.8) H 07/06/20 15:56 Eos # 0.1 K/mm3 (0.0-0.4) 07/06/20 15:56 Baso # 0.1 K/mm3 (0.0-0.1) 07/06/20 15:56 Seg Neutrophils % 74.6 % (40.0-70.0) H 07/06/20 15:56 Seg Neutrophils # 5.2 K/mm3 (1.8-7.7) 07/06/20 15:56 D-Dimer 1419.53 ng/mlDDU (0-234) H 07/07/20 19:11 Sodium 137 mmol/L (137-145) 07/06/20 15:56 Potassium 3.8 mmol/L (3.6-5.0) 07/06/20 15:56 Chloride 98.8 mmol/L (98-107) 07/06/20 15:56 Carbon Dioxide 27 mmol/L (22-30) 07/06/20 15:56 Anion Gap 15 mmol/L 07/06/20 15:56 BUN 17 mg/dL (7-17) 07/06/20 15:56 Creatinine 0.8 mg/dL (0.6-1.2) 07/06/20 15:56 Estimated GFR > 60 ml/min 07/06/20 15:56 BUN/Creatinine Ratio 21 % 07/06/20 15:56 Glucose 134 mg/dL (65-100) H 07/06/20 15:56 Calcium 9.4 mg/dL (8.4-10.2) 07/06/20 15:56 Ferritin 186.2 ng/mL (10.0-200.0) 07/07/20 19:11 Total Bilirubin 0.20 mg/dL (0.1-1.2) 07/06/20 15:56 Direct Bilirubin < 0.2 mg/dL (0-0.2) 07/06/20 15:56 AST 20 units/L (5-40) 07/06/20 15:56 ALT 8 units/L (7-56) 07/06/20 15:56 Alkaline Phosphatase 88 units/L (35-129) 07/06/20 15:56 Lactate Dehydrogenase 274 units/L (91-180) H 07/07/20 19:11 Total Creatine Kinase 64 units/L (30-135) 07/07/20 14:57 CK-MB (CK-2) < 1.0 ng/mL (0.0-4.0) 07/07/20 14:57 CK-MB (CK-2) Rel Index 1.5 (0-4) 07/07/20 14:57 Troponin T < 0.010 ng/mL (0.00-0.029) 07/07/20 14:57 C-Reactive Protein 13.20 mg/dL (0.00-1.30) H 07/07/20 19:11 NT-Pro-B Natriuret Pep 554.4 pg/mL (0-900) 07/06/20 18:10 Total Protein 7.6 g/dL (6.3-8.2) 07/06/20 15:56 Albumin 3.4 g/dL (3.9-5) L 07/06/20 15:56 Albumin/Globulin Ratio 0.8 % 07/06/20 15:56 Coronavirus (PCR) Negative (Negative) 07/08/20 Unknown Microbiology: Microbiology 07/07/20 19:11 Peripheral/Venous Blood Culture - Preliminary Culture in Progress 07/07/20 19:11 Peripheral/Venous Blood Culture - Preliminary Culture in Progress [place]/IV: Voiding Method Toilet IV Catheter Type [Right INT / Saline Lock Antecubital] Active Medications - Current Medications Current Medications: Generic Name Dose Route Start Last Admin Trade Name Freq PRN Reason Stop Dose Admin Acetaminophen 650 mg 07/07/20 01:43 07/07/20 21:44 Tylenol PO 650 mg Q4H PRN Administration Headache Amlodipine Besylate 10 mg 07/08/20 10:00 07/08/20 10:09 Amlodipine PO 10 mg DAILY JESSICA Administration Aspirin 325 mg 07/07/20 10:00 07/08/20 10:09 Aspirin PO 325 mg QDAY JESSICA Administration Furosemide 40 mg 07/08/20 10:00 07/08/20 10:09 Lasix PO 40 mg QDAY JESSICA Administration Gabapentin 300 mg 07/07/20 22:00 07/08/20 10:09 Gabapentin PO 300 mg BID JESSICA Administration Heparin Sodium (Porcine) 5,000 unit 07/07/20 01:45 07/08/20 10:09 Heparin SUB-Q 5,000 unit Q12HR JESSICA Administration Ceftriaxone Sodium 1 gm in 50 mls @ 100 mls/hr 07/08/20 10:00 07/08/20 10:11 Rocephin/Ns 1 Gm/50 Ml IV 100 mls/hr Q24HR JESSICA Administration Protocol Levothyroxine Sodium 112 mcg 07/08/20 10:00 07/08/20 10:15 Synthroid PO 112 mcg QAM@0600 JESSICA Administration Miscellaneous Medication 40 mg 07/08/20 10:00 07/08/20 10:15 Rosuvastatin Calcium [Crestor] PO 40 mg DAILY JESSICA Administration Miscellaneous Medication 20 mg 07/08/20 10:00 07/08/20 10:15 Tamoxifen Citrate [Tamoxifen Citrate] PO 20 mg DAILY JESSICA Administration Morphine Sulfate 2 mg 07/07/20 01:42 07/07/20 12:10 Morphine IV 2 mg Q3H PRN Administration Pain, Moderate (4-6) Nitroglycerin 0.5 inch 07/07/20 06:00 07/08/20 13:47 Nitro-Bid 2% TP 0.5 inch QIDNTG JESSICA Administration Protocol Nitroglycerin 0.4 mg 07/07/20 01:41 Nitrostat SL .Q5MIN PRN Chest Pain Ondansetron HCl 4 mg 07/07/20 01:42 Zofran IV Q8H PRN Nausea And Vomiting Tramadol HCl 50 mg 07/07/20 17:10 07/08/20 10:10 Ultram PO 50 mg Q6HR PRN Administration PAIN
[2020-07-08 21:42] LABS: Bacteria,Urine 1+ /HPF (Negative); Bilirubin,Urine NEG (Negative); Blood,Urine SM (Negative); Color,Urine Yellow (Yellow); Mucus,Urine 2+ /HPF
[2020-07-09] MEDS: LEVOTHYROXINE 112 MCG TAB PO SCH (05:24)
[2020-07-09] MEDS: NITROGLYCERIN 2% OINT 1 GM TP SCH ×4 (05:24→17:28)
[2020-07-09 05:25] LABS: Hematocrit 28.1 % (30.3-42.9); Hemoglobin 9.1 gm/dl (10.1-14.3); Mean Corpuscular HGB Conc 33 % (30-34); Mean Corpuscular Volume 83 fl (79-97); Platelet Count 263 K/mm3 (140-440); Red Blood Count 3.39 M/mm3 (3.65-5.03); Red Cell Distribution Width 17.8 % (13.2-15.2)
[2020-07-09 05:42] LABS: BUN/Creatinine Ratio 18; Blood Urea Nitrogen 14 mg/dL (7-17); Calcium 9.1 mg/dL (8.4-10.2); Hemolysis Index 4
[2020-07-09] MEDS: cefTRIAXone/NS 1 GM/50 ML 1 GM/50 ML BAG IV SCH (09:15)
[2020-07-09] MEDS: amLODIPine 10 MG TAB PO SCH (09:16)
[2020-07-09] MEDS: GABAPENTIN 300 MG CAP PO SCH ×2 (09:16→21:26)
[2020-07-09] MEDS: FUROSEMIDE 40 MG TAB PO SCH (09:16)
[2020-07-09] MEDS: ASPIRIN 325 MG TAB PO SCH (09:16)
[2020-07-09] MEDS: NON-FORMULARY EACH (Rosuvastatin Calcium [Crestor] 40 MG) PO SCH ×2 (10:00→21:26)
[2020-07-09] MEDS: HEPARIN 5,000 UNIT/1 ML VIAL SUB-Q SCH (10:00)
[2020-07-09] MEDS: TAMOXIFEN CITRATE 20 MG PO SCH ×2 (10:00→17:27)
--- NOTE | 2020-07-09 14:03 | Cat Scan Report ---
CTA CHEST WITH CONTRAST INDICATION / CLINICAL INFORMATION: MAIN. TECHNIQUE: Axial CT images were obtained through the chest after injection of IV contrast. 3 plane MIP and/or 3D reconstructions were produced. All CT scans at this location are performed using CT dose reduction f or ALARA by means of automated exposure control. COMPARISON: Chest radiograph 07/06/2020 FINDINGS: PULMONARY ARTERIES: Artifact from patient's arms at sides degrades quality of study decreasing sensit ivity at the level of the segmental arteries and below. No central filling defect. THORACIC AORTA: Moderate atherosclerotic calcification without acute abnormality. HEART: Multivessel coronary artery atherosclerotic change. MEDIASTINUM / BETINA: No significant abnormality. PLEURA: No pleural effusion. No pneumothorax. LUNGS: CTA technique obscures fine pulmonary parenchymal detail. No focal consolidation or mass. UPPER ABDOMEN: No acute findings. SKELETAL STRUCTURES: No significant osseous abnormality. ADDITIONAL FINDINGS: 3.5 x 3.2 x 3.4 cm heterogeneous cystic appearing focus in the right chest wall deep to the right breast tissue. IMPRESSION: 1. No CT evidence for central pulmonary embolism noting significant artifact as detailed above. 2. 3.5 cm heterogeneous cystic-appearing focus in the right chest wall deep to the right breast tissu e. Finding could represent seroma, hematoma, or abscess. Necrotic chest wall lymph node or primary ne oplasm not excluded. Consider further follow-up and evaluation as warranted. Signer Name: Helio Amor MD Signed: 07/09/2020 1:59 PM Workstation Name: [id number]
--- NOTE | 2020-07-09 14:12 | Progress Note ---
Assessment and Plan Assessment and plan: --Left shoulder pain[history of trauma] Left elbow pain[history of trauma] Patient has mild restricted and painful movements Will check x-ray left shoulder and left elbow Pain management Consider Ortho evaluation if needed --Febrile illness: T-max: 101 F/afebrile High suspicion for COVID/call with test negative Antipyretics, IV fluids, blood and urine cultures Possible UTI , empiric antibiotics with Rocephin and supportive care Contact and droplet isolation Patient has multiple risk factors --Chest pain: Evaluate for acute coronary syndrome Patient had stress test today; normal myocardial perfusion study EF 70% cardiology echo, Chest x-ray no acute abnormality noted . Aspirin and statin --History of coronary artery disease status post CABG: Continue current cardiac medications --Hypertension; moderate control Continue current antihypertensives and PRN medications --Dyslipidemia; continue statin Low-cholesterol diet --Hypothyroidism; Synthroid Continue current management --Obesity; BMI 32.2 Counseling patient may need weight reduction when stable --DVT prophylaxis; Lovenox --Full CODE STATUS We will closely monitor the patient and adjust management as needed COVID negative I discussed with patient's nurse History Interval history: I have seen and examined the patient at the bedside Patient's chart and medications reviewed Patient is COVID negative Complains of left shoulder left elbow pain Gives history of fall Alert awake oriented Vital signs noted Hospitalist Physical - Constitutional Vitals: Temp Pulse Resp BP Pulse Ox 100.0 F H 84 20 103/53 96 07/09/20 11:58 07/09/20 11:58 07/09/20 11:58 07/09/20 11:58 07/09/20 11:58 General appearance: Present: no acute distress, well-nourished (Febrile), obese - EENT Eyes: Present: PERRL, EOM intact - Neck Neck: Present: supple, normal ROM - Respiratory Respiratory effort: normal Respiratory: bilateral: diminished, negative: rales, rhonchi, wheezing - Cardiovascular Rhythm: regular Heart Sounds: Present: S1 & S2 - Extremities Extremities: abnormal (Left shoulder tenderness on movement, restricted painful movements) Extremity abnormal: other (Left elbow tenderness on palpation) - Abdominal General gastrointestinal: soft, non-tender, non-distended, normal bowel sounds - Integumentary Integumentary: Present: clear, warm - Psychiatric Psychiatric: appropriate mood/affect, cooperative - Neurologic Neurologic: CNII-XII intact, moves all extremities HEART Score - HEART Score Risk factors: 1-2 risk factors Troponin: Troponin T < 0.010 ng/mL (0.00-0.029) 07/07/20 14:57 Troponin: < normal limit - Critical Actions Critical Actions: 0-3 pts:0.9-1.7%risk of adverse cardiac event.Candidate for discharge Results - Labs CBC & Chem 7: 07/09/20 04:12 07/09/20 04:12 Labs: Laboratory Last Values WBC 7.0 K/mm3 (4.5-11.0) 07/09/20 04:12 RBC 3.39 M/mm3 (3.65-5.03) L 07/09/20 04:12 Hgb 9.1 gm/dl (10.1-14.3) L 07/09/20 04:12 Hct 28.1 % (30.3-42.9) L 07/09/20 04:12 MCV 83 fl (79-97) 07/09/20 04:12 MCH 27 pg (28-32) L 07/09/20 04:12 MCHC 33 % (30-34) 07/09/20 04:12 RDW 17.8 % (13.2-15.2) H 07/09/20 04:12 Plt Count 263 K/mm3 (140-440) 07/09/20 04:12 Lymph % (Auto) 11.0 % (13.4-35.0) L 07/06/20 15:56 [place] % (Auto) 12.6 % (0.0-7.3) H 07/06/20 15:56 Eos % (Auto) 0.9 % (0.0-4.3) 07/06/20 15:56 Baso % (Auto) 0.9 % (0.0-1.8) 07/06/20 15:56 Lymph # 0.8 K/mm3 (1.2-5.4) L 07/06/20 15:56 [place] # 0.9 K/mm3 (0.0-0.8) H 07/06/20 15:56 Eos # 0.1 K/mm3 (0.0-0.4) 07/06/20 15:56 Baso # 0.1 K/mm3 (0.0-0.1) 07/06/20 15:56 Seg Neutrophils % 74.6 % (40.0-70.0) H 07/06/20 15:56 Seg Neutrophils # 5.2 K/mm3 (1.8-7.7) 07/06/20 15:56 D-Dimer 1419.53 ng/mlDDU (0-234) H 07/07/20 19:11 Sodium 140 mmol/L (137-145) 07/09/20 04:12 Potassium 3.9 mmol/L (3.6-5.0) 07/09/20 04:12 Chloride 101.8 mmol/L (98-107) 07/09/20 04:12 Carbon Dioxide 25 mmol/L (22-30) 07/09/20 04:12 Anion Gap 17 mmol/L 07/09/20 04:12 BUN 14 mg/dL (7-17) 07/09/20 04:12 Creatinine 0.8 mg/dL (0.6-1.2) 07/09/20 04:12 Estimated GFR > 60 ml/min 07/09/20 04:12 BUN/Creatinine Ratio 18 % 07/09/20 04:12 Glucose 95 mg/dL (65-100) 07/09/20 04:12 Calcium 9.1 mg/dL (8.4-10.2) 07/09/20 04:12 Ferritin 186.2 ng/mL (10.0-200.0) 07/07/20 19:11 Total Bilirubin 0.20 mg/dL (0.1-1.2) 07/06/20 15:56 Direct Bilirubin < 0.2 mg/dL (0-0.2) 07/06/20 15:56 AST 20 units/L (5-40) 07/06/20 15:56 ALT 8 units/L (7-56) 07/06/20 15:56 Alkaline Phosphatase 88 units/L (35-129) 07/06/20 15:56 Lactate Dehydrogenase 274 units/L (91-180) H 07/07/20 19:11 Total Creatine Kinase 64 units/L (30-135) 07/07/20 14:57 CK-MB (CK-2) < 1.0 ng/mL (0.0-4.0) 07/07/20 14:57 CK-MB (CK-2) Rel Index 1.5 (0-4) 07/07/20 14:57 Troponin T < 0.010 ng/mL (0.00-0.029) 07/07/20 14:57 C-Reactive Protein 18.10 mg/dL (0.00-1.30) H 07/09/20 04:12 NT-Pro-B Natriuret Pep 554.4 pg/mL (0-900) 07/06/20 18:10 Total Protein 7.6 g/dL (6.3-8.2) 07/06/20 15:56 Albumin 3.4 g/dL (3.9-5) L 07/06/20 15:56 Albumin/Globulin Ratio 0.8 % 07/06/20 15:56 Procalcitonin 0.24 ng/mL (<0.15) 07/09/20 06:12 Urine Color Yellow (Yellow) 07/08/20 21:28 Urine Turbidity Slightly-cloudy (Clear) 07/08/20 21:28 Urine pH 5.0 (5.0-7.0) 07/08/20 21:28 Ur Specific [place] 1.020 (1.003-1.030) 07/08/20 21:28 Urine Protein 30 mg/dl mg/dL (Negative) 07/08/20 21:28 Urine Glucose (UA) Neg mg/dL (Negative) 07/08/20 21:28 Urine Ketones Neg mg/dL (Negative) 07/08/20 21:28 Urine Blood Sm (Negative) 07/08/20 21:28 Urine Nitrite Neg (Negative) 07/08/20 21:28 Urine Bilirubin Neg (Negative) 07/08/20 21:28 Urine Urobilinogen 4.0 mg/dL (<2.0) 07/08/20 21:28 Ur Leukocyte Esterase Lg (Negative) 07/08/20 21:28 Urine WBC (Auto) 91.0 /HPF (0.0-6.0) H 07/08/20 21:28 Urine RBC (Auto) 5.0 /HPF (0.0-6.0) 07/08/20 21:28 U Epithel Cells (Auto) 6.0 /HPF (0-13.0) 09/11/20 21:28 Urine Bacteria (Auto) 1+ /HPF (Negative) 07/08/20 21:28 Urine Mucus 2+ /HPF 07/08/20 21:28 Coronavirus (PCR) Negative (Negative) 07/08/20 Unknown Microbiology: Microbiology 07/07/20 19:11 Peripheral/Venous Blood Culture - Preliminary NO GROWTH AFTER 24 HOURS 07/07/20 19:11 Peripheral/Venous Blood Culture - Preliminary NO GROWTH AFTER 24 HOURS [place]/IV: Voiding Method Toilet IV Catheter Type [Right INT / Saline Lock Forearm] IV Catheter Type [Right INT / Saline Lock Antecubital] Active Medications - Current Medications Current Medications: Generic Name Dose Route Start Last Admin Trade Name Freq PRN Reason Stop Dose Admin Acetaminophen 650 mg 07/07/20 01:43 07/07/20 21:44 Tylenol PO 650 mg Q4H PRN Administration Headache Amlodipine Besylate 10 mg 07/08/20 10:00 07/09/20 09:16 Amlodipine PO 10 mg DAILY JESSICA Administration Aspirin 325 mg 07/07/20 10:00 07/09/20 09:16 Aspirin PO 325 mg QDAY JESSICA Administration Furosemide 40 mg 07/08/20 10:00 07/09/20 09:16 Lasix PO 40 mg QDAY JESSICA Administration Gabapentin 300 mg 07/07/20 22:00 07/09/20 09:16 Gabapentin PO 300 mg BID JESSICA Administration Ceftriaxone Sodium 1 gm in 50 mls @ 100 mls/hr 07/08/20 10:00 07/09/20 09:15 Rocephin/Ns 1 Gm/50 Ml IV 100 mls/hr Q24HR JESSICA Administration Protocol Levothyroxine Sodium 112 mcg 07/08/20 10:00 07/09/20 05:24 Synthroid PO 112 mcg QAM@0600 JESSICA Administration Miscellaneous Medication 40 mg 07/08/20 10:00 07/09/20 10:00 Rosuvastatin Calcium [Crestor] PO Not Given DAILY [facility] Miscellaneous Medication 20 mg 07/08/20 10:00 07/09/20 10:00 Tamoxifen Citrate [Tamoxifen Citrate] PO Not Given DAILY [facility] Morphine Sulfate 2 mg 07/07/20 01:42 07/07/20 12:10 Morphine IV 2 mg Q3H PRN Administration Pain, Moderate (4-6) Nitroglycerin 0.5 inch 07/07/20 06:00 07/09/20 09:16 Nitro-Bid 2% TP 0.5 inch QIDNTG JESSICA Administration Protocol Nitroglycerin 0.4 mg 07/07/20 01:41 07/08/20 20:48 Nitrostat SL 0.4 mg .Q5MIN PRN Administration Chest Pain Ondansetron HCl 4 mg 07/07/20 01:42 Zofran IV Q8H PRN Nausea And Vomiting Tramadol HCl 50 mg 07/07/20 17:10 07/08/20 21:00 Ultram PO 50 mg Q6HR PRN Administration PAIN
--- NOTE | 2020-07-09 21:49 | XRay Report ---
LEFT ELBOW 3 VIEWS INDICATION / CLINICAL INFORMATION: Fall with left elbow pain. COMPARISON: None available. FINDINGS: BONES / JOINT(S): There are moderate degenerative changes. I see no evidence of fracture, dislocation or joint effusion. SOFT TISSUES: There is generalized subcutaneous edema. There are several small ossific densities over lying the periarticular soft tissues, probably related to heterotopic ossification or intra-articular loose bodies. ADDITIONAL FINDINGS: None. Signer Name: Helio Santiago MD Signed: 07/09/2020 9:44 PM Workstation Name: [id number]
--- NOTE | 2020-07-09 21:50 | XRay Report ---
LEFT SHOULDER 3 VIEWS INDICATION / CLINICAL INFORMATION: Fall with left shoulder pain. COMPARISON: None available. FINDINGS: BONES / JOINT(S): There are advanced degenerative changes involving the glenohumeral joint. There are moderate degenerative changes involving the acromioclavicular joint and anterior acromion. Narrowing of the distance between the humeral head and acromion is likely related to a chronic rotator cuff te ar. I see no evidence of fracture, dislocation or destructive lesion. SOFT TISSUES: No significant abnormality. ADDITIONAL FINDINGS: The visualized left lung is clear. Signer Name: Helio Santiago MD Signed: 07/09/2020 9:45 PM Workstation Name: [id number]
--- NOTE | 2020-07-09 22:49 | XRay Report ---
LEFT WRIST 3 VIEWS INDICATION / CLINICAL INFORMATION: LT WRIST PAIN COMPARISON: None available. FINDINGS: BONES / JOINT(S): No acute fracture or subluxation. 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 Degenerative change at the radiocarpal joint with cystic degener ation at the scaphoid. Moderate DJD first carpometacarpal joint. SOFT TISSUES: No significant abnormality. ADDITIONAL FINDINGS: None. Signer Name: Edmond Zamora MD Signed: 07/09/2020 10:44 PM Workstation Name: [id number]
[2020-07-10] MEDS: LEVOTHYROXINE 112 MCG TAB PO SCH (05:27)
[2020-07-10] MEDS: NITROGLYCERIN 2% OINT 1 GM TP SCH ×4 (05:27→17:05)
[2020-07-10 06:20] LABS: C-Reactive Protein 15.9 mg/dL (0.00-1.30)
[2020-07-10] MEDS: traMADol 50 MG TAB PO PRN (09:04)
[2020-07-10] MEDS: TAMOXIFEN CITRATE 20 MG PO SCH (09:04)
[2020-07-10] MEDS: FUROSEMIDE 40 MG TAB PO SCH (09:05)
[2020-07-10] MEDS: ASPIRIN 325 MG TAB PO SCH (09:05)
[2020-07-10] MEDS: amLODIPine 10 MG TAB PO SCH (09:06)
[2020-07-10] MEDS: GABAPENTIN 300 MG CAP PO SCH ×2 (09:06→21:16)
[2020-07-10] MEDS: cefTRIAXone/NS 1 GM/50 ML 1 GM/50 ML BAG IV SCH (09:08)
--- NOTE | 2020-07-10 11:59 | Progress Note ---
Assessment and Plan Assessment and plan: COVID 19 test is -07/08/2020 --Febrile illness: T-max: 101 F/afebrile High suspicion for COVID/call with test negative Antipyretics, IV fluids, blood and urine cultures Possible UTI , empiric antibiotics with Rocephin and supportive care Contact and droplet isolation Patient has multiple risk factors --Elevated inflammatory markers; --D-dimers; elevated CTA chest negative for PE Lower extremity venous Doppler negative for DVT However worsening D-dimers 07/07; 1419.53 07/10: 2327.59. Worsening D-dimers Patient will be started on prophylactic anticoagulation full dose Lovenox, for 1 month will trend D-dimers and adjust the medications patient feels slightly better --Left shoulder pain[history of trauma] Left elbow pain[history of trauma] Patient has mild restricted and painful movements x-ray left shoulder; degenerative changes, no acute abnormality X-ray left elbow; degenerative changes, no acute abnormality Patient advised to see orthopedic surgeon if symptoms do not improve Pain management, supportive care --Chest pain: Evaluate for acute coronary syndrome Patient had stress test today; normal myocardial perfusion study EF 70% cardiology echo, Chest x-ray no acute abnormality noted . Aspirin and statin --History of coronary artery disease status post CABG: Continue current cardiac medications --Hypertension; moderate control Continue current antihypertensives and PRN medications --Dyslipidemia; continue statin Low-cholesterol diet --Hypothyroidism; Synthroid Continue current management --Obesity; BMI 32.2 Counseling patient may need weight reduction when stable --DVT prophylaxis; Lovenox --Full CODE STATUS We will closely monitor the patient and adjust management as needed COVID negative I discussed with patient's nurse Today I discussed with patient's nephew Mr. Slade Moon in patient's room at the bedside And updated patient's condition test reports treatment plan.He had many questions answered all of them I also discussed the x-ray shoulder and elbow report and treatment plan Closely monitor patient and adjust the management as needed Plan of care reviewed with the patient and her nurse -07/07: Lexiscan stress test negative, patient had spiked fever transfer to [facility] for rule out COVID 19 -07/08: COVID-19 PCR negative, however patient has high markers, consulted ID -07/09; patient complains of severe left shoulder and elbow pain, had a fall many years ago Mild tenderness and restricted movements, will check x-ray shoulder x- ray elbow for any acute abnormality -07/10; x-ray elbow and shoulder no acute abnormality chronic degenerative changes Patient has worsening D-dimers, started empiric prophylactic anticoagulation per COVID protocol Lovenox milligram /kg body weight May transition to oral, and patient will receive for total of 1 month History Interval history: COVID negative patient; I have seen and examined the patient at the bedside Patient's chart and medications reviewed Patient still complains of left shoulder pain I explained the reports both her left shoulder and left elbow x-rays are negative for acute abnormality, Degenerative changes advised to see orthopedic surgeon outpatient for further evaluation and management Patient is afebrile, vital signs reviewed Not in acute distress Hospitalist Physical - Constitutional Vitals: Temp Pulse Resp BP Pulse Ox 99.8 F H 87 20 131/69 92 07/09/20 21:44 07/09/20 21:44 07/09/20 21:44 07/09/20 21:44 07/09/20 21:44 General appearance: Present: no acute distress, well-nourished (Febrile), obese - EENT Eyes: Present: PERRL, EOM intact - Neck Neck: Present: supple, normal ROM - Respiratory Respiratory effort: normal Respiratory: bilateral: diminished, negative: rales, rhonchi, wheezing - Cardiovascular Rhythm: regular Heart Sounds: Present: S1 & S2 - Extremities Extremities: no ischemia, No edema - Abdominal General gastrointestinal: soft, non-tender, non-distended, normal bowel sounds - Integumentary Integumentary: Present: clear, warm - Psychiatric Psychiatric: appropriate mood/affect, cooperative - Neurologic Neurologic: CNII-XII intact, moves all extremities HEART Score - HEART Score Risk factors: 1-2 risk factors Troponin: Troponin T < 0.010 ng/mL (0.00-0.029) 07/07/20 14:57 Troponin: < normal limit - Critical Actions Critical Actions: 0-3 pts:0.9-1.7%risk of adverse cardiac event.Candidate for discharge Results - Labs CBC & Chem 7: 07/09/20 04:12 07/09/20 04:12 Labs: Laboratory Last Values WBC 7.0 K/mm3 (4.5-11.0) 07/09/20 04:12 RBC 3.39 M/mm3 (3.65-5.03) L 07/09/20 04:12 Hgb 9.1 gm/dl (10.1-14.3) L 07/09/20 04:12 Hct 28.1 % (30.3-42.9) L 07/09/20 04:12 MCV 83 fl (79-97) 07/09/20 04:12 MCH 27 pg (28-32) L 07/09/20 04:12 MCHC 33 % (30-34) 07/09/20 04:12 RDW 17.8 % (13.2-15.2) H 07/09/20 04:12 Plt Count 263 K/mm3 (140-440) 07/09/20 04:12 Lymph % (Auto) 11.0 % (13.4-35.0) L 07/06/20 15:56 Emanuel % (Auto) 12.6 % (0.0-7.3) H 07/06/20 15:56 Eos % (Auto) 0.9 % (0.0-4.3) 07/06/20 15:56 Baso % (Auto) 0.9 % (0.0-1.8) 07/06/20 15:56 Lymph # 0.8 K/mm3 (1.2-5.4) L 07/06/20 15:56 Emanuel # 0.9 K/mm3 (0.0-0.8) H 07/06/20 15:56 Eos # 0.1 K/mm3 (0.0-0.4) 07/06/20 15:56 Baso # 0.1 K/mm3 (0.0-0.1) 07/06/20 15:56 Seg Neutrophils % 74.6 % (40.0-70.0) H 07/06/20 15:56 Seg Neutrophils # 5.2 K/mm3 (1.8-7.7) 07/06/20 15:56 D-Dimer 2327.59 ng/mlDDU (0-234) H 07/10/20 05:20 Sodium 140 mmol/L (137-145) 07/09/20 04:12 Potassium 3.9 mmol/L (3.6-5.0) 07/09/20 04:12 Chloride 101.8 mmol/L (98-107) 07/09/20 04:12 Carbon Dioxide 25 mmol/L (22-30) 07/09/20 04:12 Anion Gap 17 mmol/L 07/09/20 04:12 BUN 14 mg/dL (7-17) 07/09/20 04:12 Creatinine 0.8 mg/dL (0.6-1.2) 07/09/20 04:12 Estimated GFR > 60 ml/min 07/09/20 04:12 BUN/Creatinine Ratio 18 % 07/09/20 04:12 Glucose 95 mg/dL (65-100) 07/09/20 04:12 Calcium 9.1 mg/dL (8.4-10.2) 07/09/20 04:12 Ferritin 186.2 ng/mL (10.0-200.0) 07/07/20 19:11 Total Bilirubin 0.20 mg/dL (0.1-1.2) 07/06/20 15:56 Direct Bilirubin < 0.2 mg/dL (0-0.2) 07/06/20 15:56 AST 20 units/L (5-40) 07/06/20 15:56 ALT 8 units/L (7-56) 07/06/20 15:56 Alkaline Phosphatase 88 units/L (35-129) 07/06/20 15:56 Lactate Dehydrogenase 168 units/L (91-180) 07/10/20 05:20 Total Creatine Kinase 64 units/L (30-135) 07/07/20 14:57 CK-MB (CK-2) < 1.0 ng/mL (0.0-4.0) 07/07/20 14:57 CK-MB (CK-2) Rel Index 1.5 (0-4) 07/07/20 14:57 Troponin T < 0.010 ng/mL (0.00-0.029) 07/07/20 14:57 C-Reactive Protein 15.90 mg/dL (0.00-1.30) H 07/10/20 05:20 NT-Pro-B Natriuret Pep 554.4 pg/mL (0-900) 07/06/20 18:10 Total Protein 7.6 g/dL (6.3-8.2) 07/06/20 15:56 Albumin 3.4 g/dL (3.9-5) L 07/06/20 15:56 Albumin/Globulin Ratio 0.8 % 07/06/20 15:56 Procalcitonin 0.24 ng/mL (<0.15) 07/09/20 06:12 Urine Color Yellow (Yellow) 07/08/20 21:28 Urine Turbidity Slightly-cloudy (Clear) 07/08/20 21:28 Urine pH 5.0 (5.0-7.0) 07/08/20 21:28 Ur Specific [place] 1.020 (1.003-1.030) 07/08/20 21:28 Urine Protein 30 mg/dl mg/dL (Negative) 07/08/20 21:28 Urine Glucose (UA) Neg mg/dL (Negative) 07/08/20 21: Urine Ketones Neg mg/dL (Negative) 07/08/20 21:28 Urine Blood Sm (Negative) 07/08/20 21:28 Urine Nitrite Neg (Negative) 07/08/20 21:28 Urine Bilirubin Neg (Negative) 07/08/20 21:28 Urine Urobilinogen 4.0 mg/dL (<2.0) 07/08/20 21:28 Ur Leukocyte Esterase Lg (Negative) 07/08/20 21:28 Urine WBC (Auto) 91.0 /HPF (0.0-6.0) H 07/08/20 21:28 Urine RBC (Auto) 5.0 /HPF (0.0-6.0) 07/08/20 21:28 U Epithel Cells (Auto) 6.0 /HPF (0-13.0) 07/08/20 21:28 Urine Bacteria (Auto) 1+ /HPF (Negative) 07/08/20 21:28 Urine Mucus 2+ /HPF 07/08/20 21:28 Coronavirus (PCR) Negative (Negative) 07/08/20 Unknown Microbiology: Microbiology 07/07/20 19:11 Peripheral/Venous Blood Culture - Preliminary NO GROWTH AFTER 48 HOURS 07/07/20 19:11 Peripheral/Venous Blood Culture - Preliminary NO GROWTH AFTER 48 HOURS [place]/IV: Voiding Method External Female Catheter IV Catheter Type [Right INT / Saline Lock Forearm] IV Catheter Type [Right INT / Saline Lock Antecubital] Active Medications - Current Medications Current Medications: Generic Name Dose Route Start Last Admin Trade Name Freq PRN Reason Stop Dose Admin Acetaminophen 650 mg 07/07/20 01:43 07/07/20 21:44 Tylenol PO 650 mg Q4H PRN Administration Headache Amlodipine Besylate 10 mg 07/08/20 10:00 07/10/20 09:06 Amlodipine PO 10 mg DAILY JESSICA Administration Aspirin 325 mg 07/07/20 10:00 07/10/20 09:05 Aspirin PO 325 mg QDAY JESSICA Administration Enoxaparin Sodium 80 mg 07/10/20 22:00 Enoxaparin 1 mg/kg (80 mg) SUB-Q Q12HR [facility] Protocol Furosemide 40 mg 07/08/20 10:00 07/10/20 09:05 Lasix PO 40 mg QDAY JESSICA Administration Gabapentin 300 mg 07/07/20 22:00 07/10/20 09:06 Gabapentin PO 300 mg BID JESSICA Administration Ceftriaxone Sodium 1 gm in 50 mls @ 100 mls/hr 07/08/20 10:00 07/10/20 09:08 Rocephin/Ns 1 Gm/50 Ml IV 100 mls/hr Q24HR [facility] Administration Protocol Levothyroxine Sodium 112 mcg 07/08/20 10:00 07/10/20 05:27 Synthroid PO 112 mcg QAM@0600 JESSICA Administration Miscellaneous Medication 40 mg 07/09/20 22:00 07/09/20 21:26 Rosuvastatin Calcium [Crestor] PO 40 mg QHS JESSICA Administration Miscellaneous Medication 20 mg 07/09/20 18:00 07/10/20 09:04 Tamoxifen Citrate [Tamoxifen Citrate] PO 20 mg DAILY JESSICA Administration Morphine Sulfate 2 mg 07/07/20 01:42 07/07/20 12:10 Morphine IV 2 mg Q3H PRN Administration Pain, Moderate (4-6) Nitroglycerin 0.5 inch 07/07/20 06:00 07/10/20 09:07 Nitro-Bid 2% TP 0.5 inch QIDNTG [facility] Administration Protocol Nitroglycerin 0.4 mg 07/07/20 01:41 07/08/20 20:48 Nitrostat SL 0.4 mg .Q5MIN PRN Administration Chest Pain Ondansetron HCl 4 mg 07/07/20 01:42 Zofran IV Q8H PRN Nausea And Vomiting Tramadol HCl 50 mg 07/07/20 17:10 07/10/20 09:04 Ultram PO 50 mg Q6HR PRN Administration PAIN
--- NOTE | 2020-07-10 17:38 | Vascular Lab Report ---
DUPLEX DOPPLER LOWER EXTREMITY VEINS, BILATERAL INDICATION / CLINICAL INFORMATION: Bilateral leg swelling. Elevated d-dimer. TECHNIQUE: Duplex doppler imaging was performed through the veins of both lower extremities using venous tenzin kvng and other maneuvers. COMPARISON: None available. FINDINGS: RIGHT COMMON FEMORAL VEIN: Negative. RIGHT FEMORAL VEIN: Negative. RIGHT POPLITEAL VEIN: Negative. RIGHT CALF VEINS: Negative. LEFT COMMON FEMORAL VEIN: Negative. LEFT FEMORAL VEIN: Negative. LEFT POPLITEAL VEIN: Negative. LEFT CALF VEINS: Negative. ADDITIONAL FINDINGS: There is no evidence of a popliteal cyst or other significant abnormality. IMPRESSION: No sonographic evidence for DVT in either lower extremity. Signer Name: Helio Santiago MD Signed: 07/10/2020 5:34 PM Workstation Name: [id number]
[2020-07-10] MEDS: ACETAMINOPHEN 325 MG TAB PO PRN (18:25)
[2020-07-10] MEDS: ENOXAPARIN 80 MG/0.8 ML INJ SUB-Q SCH (21:17)
[2020-07-10] MEDS: NON-FORMULARY EACH (Rosuvastatin Calcium [Crestor] 40 MG) PO SCH (21:17)
[2020-07-10] MEDS ORDERED: ENOXAPARIN 100 MG/1 ML INJ SUB-Q SCH (22:00)
[2020-07-11] MEDS: LEVOTHYROXINE 112 MCG TAB PO SCH (05:13)
[2020-07-11] MEDS: NITROGLYCERIN 2% OINT 1 GM TP SCH ×4 (05:17→18:23)
--- NOTE | 2020-07-11 10:08 | Progress Note ---
Assessment and Plan Cultures: Blood culture 07/07/2020 no growth today Urine culture 07/08/2020 pending SARS-CoV-2 PCR negative A/P: 85-year-old female past medical history arthritis, CAD, hypertension admitted with chest pains and found to be febrile. #Sepsis: Remains with low-grade fever, likely secondary to UTI; however concern of possible left chest wall infection.. CTA shows no consolidation. #Left chest wall cyst: Under breast tissue ? hematoma ? Abscess ? Malignancy. Discussed with Dr. Alexis on sure if this is breast tissue, looks more like soft tissue mass. Cyst is 3.5 x 3.2 x 3.4 cm under the left breast. Initial CT wrongly described cyst under right breast. #Chest pain: Of unclear etiology, normal myocardial perfusion study, EF 70%. ? Left chest wall cyst. #Elevated CRP/d-dimer: CTA shows no PE, venous lower extremities ultrasound no DVT. Likely reactive due to possible chest wall infection. Recs: -Obtain a left breast ultrasound per Dr. Alexis's recommendation: ? Cystic versus solid mass on the left breast -Consult breast surgery -rule out malignancy versus abscess, re: left chest wall mass under left breast -Noted elevated CRP and d-dimer, likely reactive -COVID-19 PCR was negative, doubt post COVID-19 pulmonary thromboembolism, CTA with PE, venous Doppler ultrasound no DVT. -Continue ceftriaxone 2 g IV once a day for now-total duration 3 days for UTI, however covering possible left chest wall infection -Follow urine culture Carmen Beck MD [facility] ([facility]) Office [phone] Subjective Date of service: 07/11/20 Principal diagnosis: Fever Interval history: Remains complaining of left-sided chest pain with low-grade fever. Objective - Exam Narrative Exam: Constitutional: Alert, cooperative. No acute distress Head, Ears, Nose: Normocephalic, atraumatic. External ears, nose normal OP: Clear Eyes: Conjunctivae/corneas clear. No icterus. No ptosis. Neck: Supple, no meningeal signs Cardiovascular: S1, S2 normal. Respiratory: Good air entry, clear to auscultation bilaterally GI: Soft, non-tender; bowel sounds normal. No peritoneal signs Musculoskeletal: no edema, deformities Skin: No mass or rash, bilateral breast unremarkable Hem/Lymphatic: No palpable cervical or supraclavicular nodes. No lymphangitis Psych: Mood ok. Affect normal Neurological: Awake, alert, oriented. No gross abnormality - Constitutional Vitals: Vital Signs Temp Pulse Resp BP Pulse Ox 97.9 F 80 16 117/63 97 07/11/20 04:54 07/11/20 04:54 07/11/20 04:54 07/11/20 04:54 07/11/20 04:54 Temperature -Last 24 Hours Temperature 97.9 F Temperature 99.2 F Temperature 100.2 F Temperature 99.6 F - Labs CBC & Chem 7: 07/09/20 04:12 07/09/20 04:12 Labs: Abnormal lab results 07/11/20 07/11/20 07/11/20 Range/Units 04:47 04:47 04:47 D-Dimer 2730.34 H (0-234) ng/mlDDU Ferritin 284.7 H (10.0-200.0) ng/mL C-Reactive Protein 15.00 H (0.00-1.30) mg/dL
[2020-07-11] MEDS: amLODIPine 10 MG TAB PO SCH (10:30)
[2020-07-11] MEDS: FUROSEMIDE 40 MG TAB PO SCH (10:30)
[2020-07-11] MEDS: TAMOXIFEN CITRATE 20 MG PO SCH (10:30)
[2020-07-11] MEDS: ASPIRIN 325 MG TAB PO SCH (10:30)
[2020-07-11] MEDS: GABAPENTIN 300 MG CAP PO SCH ×2 (10:30→21:11)
[2020-07-11] MEDS: cefTRIAXone/NS 1 GM/50 ML 1 GM/50 ML BAG IV SCH (10:31)
[2020-07-11] MEDS: ENOXAPARIN 80 MG/0.8 ML INJ SUB-Q SCH (10:31)
--- NOTE | 2020-07-11 12:22 | Consultation ---
History of Present Illness Consult date: 07/11/20 Reason for consult: other (History of left breast cancer) Requesting physician: BON NAVAS Chief complaint: Abnormal CT - History of present illness History of present illness: This is an 85-year-old -[place] recently admitted for chest pain and shortness of breath on 07/07/2020; breast surgery consulted for abnormal CT. Patient reports recently she was not feeling well with complaints of chest pain and shortness of breath. CT chest obtained at admission with findings of a right breast mass of 3.5 cm. Patient reports history of left breast cancer with a prior left partial mastectomy with sentinel lymph node biopsy she thinks in 2014 but is unsure followed by adjuvant left chest wall radiation. She is currently taking tamoxifen and has been on tamoxifen for at least 5 years. She does not remember the stage of her breast cancer. She currently is followed by her breast surgeon and medical oncologist at [place]. Patient reports she recently had a mammogram this year with negative findings. Past History Past Medical History: arthritis, CAD, cancer (left breast cancer), hypertension, hypothyroidism, other Past Surgical History: CABG, Other (LEFT LUMPECTOMY) Medications and Allergies Allergies Allergy/AdvReac Type Severity Reaction Status Date / Time No Known Allergies Allergy Verified 06/27/20 13:52 Home Medications Medication Instructions Recorded Confirmed Last Taken Type Acetaminophen [Tylenol] 500 mg PO PRN PRN 05/09/20 07/09/20 05/23/20 History Furosemide [Lasix TAB] 40 mg PO QDAY 05/09/20 07/09/20 05/23/20 History Levothyroxine [Synthroid] 112 mcg PO QAM 05/09/20 07/09/20 05/24/20 06:00 History Rosuvastatin Calcium [Crestor] 40 mg PO DAILY 05/09/20 07/09/20 05/23/20 History Tamoxifen Citrate 20 mg PO DAILY 05/09/20 07/09/20 05/24/20 06:00 History amLODIPine 10 mg PO DAILY 05/09/20 07/09/20 05/23/20 History Celecoxib [celeBREX] 200 mg PO BID #4 capsule 05/24/20 07/09/20 Unknown Rx Gabapentin 300 mg PO BID #4 capsule 05/24/20 07/09/20 Unknown Rx HYDROcodone/APAP 5-325 [[place] 1 each PO Q6HR PRN #10 tablet 05/24/20 07/09/20 Unknown Rx 5-325 mg TAB] traMADoL [Ultram] 50 mg PO Q6HR PRN #15 tablet 06/27/20 07/09/20 Unknown Rx Active Meds: Active Medications Acetaminophen (Tylenol) 650 mg PO Q4H PRN PRN Reason: Headache Last Admin: 07/10/20 18:25 Dose: 650 mg Documented by: Amlodipine Besylate (Amlodipine) 10 mg PO DAILY [facility] Last Admin: 07/11/20 10:30 Dose: 10 mg Documented by: Aspirin (Aspirin) 325 mg PO QDAY [facility] Last Admin: 07/11/20 10:30 Dose: 325 mg Documented by: Furosemide (Lasix) 40 mg PO QDAY [facility] Last Admin: 07/11/20 10:30 Dose: 40 mg Documented by: Gabapentin (Gabapentin) 300 mg PO BID [facility] Last Admin: 07/11/20 10:30 Dose: 300 mg Documented by: Ceftriaxone Sodium (Rocephin/Ns 1 Gm/50 Ml) 1 gm in 50 mls @ 100 mls/hr IV Q24HR [facility]; Protocol Last Admin: 07/11/20 10:31 Dose: 100 mls/hr Documented by: Levothyroxine Sodium (Synthroid) 112 mcg PO QAM@0600 [facility] Last Admin: 07/11/20 05:13 Dose: 112 mcg Documented by: Miscellaneous Medication (Rosuvastatin Calcium [Crestor]) 40 mg PO QHS [facility] Last Admin: 07/10/20 21:17 Dose: 40 mg Documented by: Miscellaneous Medication (Tamoxifen Citrate [Tamoxifen Citrate]) 20 mg PO DAILY [facility] Last Admin: 07/11/20 10:30 Dose: 20 mg Documented by: Morphine Sulfate (Morphine) 2 mg IV Q3H PRN PRN Reason: Pain, Moderate (4-6) Last Admin: 07/07/20 12:10 Dose: 2 mg Documented by: Nitroglycerin (Nitro-Bid 2%) 0.5 inch TP QIDNTG [facility]; Protocol Last Admin: 07/11/20 10:30 Dose: 0.5 inch Documented by: Nitroglycerin (Nitrostat) 0.4 mg SL .Q5MIN PRN PRN Reason: Chest Pain Last Admin: 07/08/20 20:48 Dose: 0.4 mg Documented by: Ondansetron HCl (Zofran) 4 mg IV Q8H PRN PRN Reason: Nausea And Vomiting Tramadol HCl (Ultram) 50 mg PO Q6HR PRN PRN Reason: PAIN Last Admin: 07/10/20 09:04 Dose: 50 mg Documented by: Exam Vital Signs Temp Pulse Resp BP Pulse Ox 97.8 F 96 H 20 153/70 98 07/06/20 14:34 07/06/20 14:34 07/06/20 14:34 07/06/20 14:34 07/06/20 14:34 - General physical appearance Positive: well developed, well nourished, no distress - Eyes Positive: PERRL, normal occular movement - ENT Positive: normal pinna, normal nares, normal mucosa, no hearing loss, no congestion - Neck Positive: no masses, no bruits, trachea midline, no lymphadectomy, no venous distension - Respiratory Positive: normal expansion - Cardiovascular Rhythm: regular - Extremities Extremities: no ischemia, pulses intact, pulses symmetrical, No edema, normal temperature, normal color, Full ROM - Breasts Breasts: other (left partial mastectomy incision at 5/6:00 close to IMF with palpable questionable seroma vs mass of 2-3 cm; right breast palpable asymmtery at 9:00 position; limited exam due to patient positioning) - Genitourinary Female Genitourinary: deferred - Integumentary no rash, no growths, no abnormal pigmentation - Neurologic Neurologic: alert and oriented to time, place and person, motor strength and sensation are grossly intact, CN II-XII intact - Psychiatric Psychiatric: appropriate mood/affect, intact judgment & insight, memory intact (does not remember details of breast cancer history), cooperative Results - Labs 07/09/20 04:12 07/09/20 04:12 Abnormal lab results 07/11/20 07/11/20 07/11/20 Range/Units 04:47 04:47 04:47 D-Dimer 2730.34 H (0-234) ng/mlDDU Ferritin 284.7 H (10.0-200.0) ng/mL C-Reactive Protein 15.00 H (0.00-1.30) mg/dL Assessment and Plan This is an 85-year-old -[place] recently admitted for chest pain and shortness of breath on 07/07/2020; breast surgery consulted for abnormal CT. CT chest obtained at admission with findings of a right breast mass of 3.5 cm. Patient reports history of left breast cancer with a prior left partial mastectomy with sentinel lymph node biopsy she thinks in 2014 but is unsure followed by adjuvant left chest wall radiation. She is currently taking tamoxifen and has been on tamoxifen for at least 5 years. She does not remember the stage of her breast cancer. She currently is followed by her breast surgeon and medical oncologist at [place]. Patient reports she recently had a mammogram this year with negative findings. Physical exam today left partial mastectomy incision at the 5 to 6 o'clock position close to the inframammary fold with incision well-healed and palpable probable seroma versus mass of the least 2 to 3 cm. Right breast palpable asymmetry at the 9 o'clock position of 2 to 3 cm. As discussed with primary team and patient, patient will need diagnostic work-up to include diagnostic right mammogram and also right breast ultrasound. As I discussed with patient today I can follow her as an outpatient for complete diagnostic breast workup or she can follow with her current breast surgeon and medical oncologist. Mammogram cannot be done as an inpatient and has to be done as an outpatient. Thank you for this consult and please call me with any questions and I will follow up with pending breast ultrasound. [phone]. - Patient Problems (1) Breast mass in female Current Visit: Yes Status: Acute
--- NOTE | 2020-07-11 16:02 | Progress Note ---
Assessment and Plan - Patient Problems (1) Person under investigation for COVID-19 Current Visit: Yes Status: Ruled-out Plan to address problem: - High suspicion for COVID given febrile and elevated markers; Possible UTI , empiric antibiotics with Rocephin - Antipyretics - 07/08 blood and urine cultures no growth to date - 07/08 and 07/11 COVID PCR negative (2) Breast mass in female Current Visit: Yes Status: Acute Plan to address problem: -Breast surgery consulted -CTA obtained to rule out PE showed incidental finding of a right breast mass of 3.5 cm -Patient has a history of left breast cancer with a left partial mastectomy and sentinel lymph node biopsy followed by adjuvant left chest wall radiation -Patient currently takes tamoxifen -F/U breast ultrasound (3) Chest pain Current Visit: Yes Status: Resolved Plan to address problem: - 07/07 stress test shows normal myocardial perfusion study - 07/07 Echo shows EF 70% - 07/06 Chest x-ray shows no acute abnormality - ASA and statin therapy - PRN EKG (4) UTI (urinary tract infection) Current Visit: Yes Status: Acute Plan to address problem: -07/08 UA with large leukocyte esterase Patient on antibiotic therapy (07/08 through 07/13) Supportive care 07/08 urine culture shows usual skin nilo Trend CBC (5) Hypertension Current Visit: Yes Status: Chronic Plan to address problem: - Continue current antihypertensives and PRN medications - BP monitoring per protocol (6) Hypothyroidism Current Visit: Yes Status: Chronic Plan to address problem: - Continue home levothyroxine (7) CAD (coronary artery disease) Current Visit: Yes Status: Chronic Plan to address problem: - Continue home statin therapy (8) Obesity Current Visit: Yes Status: Chronic Plan to address problem: - Weight loss counseling provided (9) DVT prophylaxis Current Visit: No Status: Acute Plan to address problem: - SCDS to BLE while in bed - Heparin subq History Interval history: This is a 59-year-old female with arthritis, CAD, HTN, hypothyroidism, [place] s/p 3 vessel CABG (approximately 2014) and lumpectomy (2014) who presented to the emergency department on 07/07 with complaints of substernal chest tightness ongoing for 2 days and associated with ankle edema with no shortness of breath, nausea or vomiting or diaphoresis. In the emergency department labs were insignificant other than a BNP of 255 and her chest x-ray was negative for any acute process. She was scheduled for a Lexiscan on 07/07 which was negative. Her COVID PCR has been negative x2 however continues to have elevated d-dimer. Of note patient recently had an incarcerated hernia repair about a month ago. This morning she states that she wants to go home. Breast surgery consulted today for incision of finding on CT of a breast mass. Breast ultrasound pending. Anticoagulation with Lovenox stopped per ID request. -07/07: Lexiscan (-), transfer to [facility] for rule out COVID 19 after becoming febrile -07/08: COVID-19 PCR negative, elevated COVID markers therefore ID consulted, started on Rocephin -07/09: patient complains of severe left shoulder and elbow pain, had a fall many years ago. Mild tenderness and restricted movements, will obtain x-ray shoulder x-ray elbow for any acute abnormality -07/10: x-ray elbow and shoulder no acute abnormality chronic degenerative changes; Patient has worsening D-dimers, started empiric prophylactic anticoagulation per COVID protocol Lovenox milligram /kg body weight, May transition to oral, and patient will receive for total of 1 month Hospitalist Physical - Constitutional Vitals: Temp Pulse Resp BP Pulse Ox 98.5 F 87 20 111/61 97 07/11/20 10:47 07/11/20 10:47 07/11/20 10:47 07/11/20 10:47 07/11/20 10:47 General appearance: Present: no acute distress, well-nourished (Febrile), obese HEART Score - HEART Score Risk factors: 1-2 risk factors Troponin: Troponin T < 0.010 ng/mL (0.00-0.029) 07/07/20 14:57 Troponin: < normal limit - Critical Actions Critical Actions: 0-3 pts:0.9-1.7%risk of adverse cardiac event.Candidate for discharge Results - Labs CBC & Chem 7: 07/09/20 04:12 07/09/20 04:12 Labs: Laboratory Last Values WBC 7.0 K/mm3 (4.5-11.0) 07/09/20 04:12 RBC 3.39 M/mm3 (3.65-5.03) L 07/09/20 04:12 Hgb 9.1 gm/dl (10.1-14.3) L 07/09/20 04:12 Hct 28.1 % (30.3-42.9) L 07/09/20 04:12 MCV 83 fl (79-97) 07/09/20 04:12 MCH 27 pg (28-32) L 07/09/20 04:12 MCHC 33 % (30-34) 07/09/20 04:12 RDW 17.8 % (13.2-15.2) H 07/09/20 04:12 Plt Count 263 K/mm3 (140-440) 07/09/20 04:12 Lymph % (Auto) 11.0 % (13.4-35.0) L 07/06/20 15:56 [place] % (Auto) 12.6 % (0.0-7.3) H 07/06/20 15:56 Eos % (Auto) 0.9 % (0.0-4.3) 07/06/20 15:56 Baso % (Auto) 0.9 % (0.0-1.8) 07/06/20 15:56 Lymph # 0.8 K/mm3 (1.2-5.4) L 07/06/20 15:56 [place] # 0.9 K/mm3 (0.0-0.8) H 07/06/20 15:56 Eos # 0.1 K/mm3 (0.0-0.4) 07/06/20 15:56 Baso # 0.1 K/mm3 (0.0-0.1) 07/06/20 15:56 Seg Neutrophils % 74.6 % (40.0-70.0) H 07/06/20 15:56 Seg Neutrophils # 5.2 K/mm3 (1.8-7.7) 07/06/20 15:56 D-Dimer 2730.34 ng/mlDDU (0-234) H 07/11/20 04:47 Sodium 140 mmol/L (137-145) 07/09/20 04:12 Potassium 3.9 mmol/L (3.6-5.0) 07/09/20 04:12 Chloride 101.8 mmol/L (98-107) 07/09/20 04:12 Carbon Dioxide 25 mmol/L (22-30) 07/09/20 04:12 Anion Gap 17 mmol/L 07/09/20 04:12 BUN 14 mg/dL (7-17) 07/09/20 04:12 Creatinine 0.8 mg/dL (0.6-1.2) 07/09/20 04:12 Estimated GFR > 60 ml/min 07/09/20 04:12 BUN/Creatinine Ratio 18 % 07/09/20 04:12 Glucose 95 mg/dL (65-100) 07/09/20 04:12 Calcium 9.1 mg/dL (8.4-10.2) 07/09/20 04:12 Ferritin 284.7 ng/mL (10.0-200.0) H 07/11/20 04:47 Total Bilirubin 0.20 mg/dL (0.1-1.2) 07/06/20 15:56 Direct Bilirubin < 0.2 mg/dL (0-0.2) 07/06/20 15:56 AST 20 units/L (5-40) 07/06/20 15:56 ALT 8 units/L (7-56) 07/06/20 15:56 Alkaline Phosphatase 88 units/L (35-129) 07/06/20 15:56 Lactate Dehydrogenase 168 units/L (91-180) 07/10/20 05:20 Total Creatine Kinase 64 units/L (30-135) 07/07/20 14:57 CK-MB (CK-2) < 1.0 ng/mL (0.0-4.0) 07/07/20 14:57 CK-MB (CK-2) Rel Index 1.5 (0-4) 07/07/20 14:57 Troponin T < 0.010 ng/mL (0.00-0.029) 07/07/20 14:57 C-Reactive Protein 15.00 mg/dL (0.00-1.30) H 07/11/20 04:47 NT-Pro-B Natriuret Pep 554.4 pg/mL (0-900) 07/06/20 18:10 Total Protein 7.6 g/dL (6.3-8.2) 07/06/20 15:56 Albumin 3.4 g/dL (3.9-5) L 07/06/20 15:56 Albumin/Globulin Ratio 0.8 % 07/06/20 15:56 Procalcitonin 0.24 ng/mL (<0.15) 07/09/20 06:12 Urine Color Yellow (Yellow) 07/08/20 21:28 Urine Turbidity Slightly-cloudy (Clear) 07/08/20 21:28 Urine pH 5.0 (5.0-7.0) 07/08/20 21:28 Ur Specific [place] 1.020 (1.003-1.030) 07/08/20 21:28 Urine Protein 30 mg/dl mg/dL (Negative) 07/08/20 21:28 Urine Glucose (UA) Neg mg/dL (Negative) 07/08/20 21:28 Urine Ketones Neg mg/dL (Negative) 07/08/20 21:28 Urine Blood Sm (Negative) 07/08/20 21:28 Urine Nitrite Neg (Negative) 07/08/20 21:28 Urine Bilirubin Neg (Negative) 07/08/20 21:28 Urine Urobilinogen 4.0 mg/dL (<2.0) 07/08/20 21:28 Ur Leukocyte Esterase Lg (Negative) 07/08/20 21:28 Urine WBC (Auto) 91.0 /HPF (0.0-6.0) H 07/08/20 21:28 Urine RBC (Auto) 5.0 /HPF (0.0-6.0) 07/08/20 21:28 U Epithel Cells (Auto) 6.0 /HPF (0-13.0) 07/08/20 21:28 Urine Bacteria (Auto) 1+ /HPF (Negative) 07/08/20 21:28 Urine Mucus 2+ /HPF 07/08/20 21:28 Coronavirus (PCR) Negative (Negative) 07/11/20 09:30 Microbiology: Microbiology 07/07/20 19:11 Peripheral/Venous Blood Culture - Preliminary NO GROWTH AFTER 72 HOURS 07/07/20 19:11 Peripheral/Venous Blood Culture - Preliminary NO GROWTH AFTER 72 HOURS 07/08/20 21:28 Urine,Clean Catch Urine Culture - Preliminary [place]/IV: Voiding Method External Female Catheter IV Catheter Type [Right INT / Saline Lock Forearm] IV Catheter Type [Right INT / Saline Lock Antecubital] Active Medications - Current Medications Current Medications: Generic Name Dose Route Start Last Admin Trade Name Freq PRN Reason Stop Dose Admin Acetaminophen 650 mg 07/07/20 01:43 07/10/20 18:25 Tylenol PO 650 mg Q4H PRN Administration Headache Amlodipine Besylate 10 mg 07/08/20 10:00 07/11/20 10:30 Amlodipine PO 10 mg DAILY JESSICA Administration Aspirin 325 mg 07/07/20 10:00 07/11/20 10:30 Aspirin PO 325 mg QDAY JESSICA Administration Furosemide 40 mg 07/08/20 10:00 07/11/20 10:30 Lasix PO 40 mg QDAY JESSICA Administration Gabapentin 300 mg 07/07/20 22:00 07/11/20 10:30 Gabapentin PO 300 mg BID JESSICA Administration Ceftriaxone Sodium 1 gm in 50 mls @ 100 mls/hr 07/08/20 10:00 07/11/20 10:31 Rocephin/Ns 1 Gm/50 Ml IV 100 mls/hr Q24HR [facility] Administration Protocol Levothyroxine Sodium 112 mcg 07/08/20 10:00 07/11/20 05:13 Synthroid PO 112 mcg QAM@0600 [facility] Administration Miscellaneous Medication 40 mg 07/09/20 22:00 07/10/20 21:17 Rosuvastatin Calcium [Crestor] PO 40 mg QHS JESSICA Administration Miscellaneous Medication 20 mg 07/09/20 18:00 07/11/20 10:30 Tamoxifen Citrate [Tamoxifen Citrate] PO 20 mg DAILY [facility] Administration Morphine Sulfate 2 mg 07/07/20 01:42 07/07/20 12:10 Morphine IV 2 mg Q3H PRN Administration Pain, Moderate (4-6) Nitroglycerin 0.5 inch 07/07/20 06:00 07/11/20 14:10 Nitro-Bid 2% TP 0.5 inch QIDNTG [facility] Administration Protocol Nitroglycerin 0.4 mg 07/07/20 01:41 07/08/20 20:48 Nitrostat SL 0.4 mg .Q5MIN PRN Administration Chest Pain Ondansetron HCl 4 mg 07/07/20 01:42 Zofran IV Q8H PRN Nausea And Vomiting Tramadol HCl 50 mg 07/07/20 17:10 07/10/20 09:04 Ultram PO 50 mg Q6HR PRN Administration PAIN
[2020-07-11] MEDS: NON-FORMULARY EACH (Rosuvastatin Calcium [Crestor] 40 MG) PO SCH (21:12)
[2020-07-12] MEDS: NITROGLYCERIN 2% OINT 1 GM TP SCH ×2 (05:52→10:19)
[2020-07-12] MEDS: LEVOTHYROXINE 112 MCG TAB PO SCH (05:53)
[2020-07-12 06:38] VITALS: BP 128/63
[2020-07-12] MEDS: FUROSEMIDE 40 MG TAB PO SCH (10:18)
[2020-07-12] MEDS: GABAPENTIN 300 MG CAP PO SCH (10:19)
[2020-07-12] MEDS: ASPIRIN 325 MG TAB PO SCH (10:19)
[2020-07-12] MEDS: cefTRIAXone/NS 1 GM/50 ML 1 GM/50 ML BAG IV SCH (10:21)
[2020-07-12] MEDS: amLODIPine 10 MG TAB PO SCH (10:21)
--- NOTE | 2020-07-12 10:41 | Ultrasound Report ---
EXAMINATION: Left Limited Breast Ultrasound, 07/12/2020 INDICATION: left cyst/mass under left breast. Patient presents for evaluation of an area of palpable concern in t he left breast. Patient is currently an inpatient being evaluated for chest pain and fever. COMPARISON: None. FINDINGS: Targeted ultrasound evaluation was performed of the area of interest. Targeted ultrasound of the area of palpable concern in the left breast 5:00 position located 5 cm from the nipple reveals a heterogeneous oval mass measuring up to 3.6 x 2.9 x 2.9 cm. A focus of internal vascularity is dem onstrated. An additional incidental similar appearing heterogeneous mass is seen in the left breast 2 :00 position located 2 cm from the nipple measuring up to 3.0 x 3.1 x 2.6 cm. A focus of internal vas cularity is demonstrated. No left axillary adenopathy is identified. IMPRESSION: 1. Two heterogeneous oval masses in the left breast are suspicious for malignancy, one of which accou nts for the area of palpable concern. Ultrasound-guided biopsy of both sites is recommended. 2. Bilateral mammogram is unable to be obtained as patient is currently inpatient. Recommend mammogra m after patient's discharge. Follow up recommendation: Biopsy BI-RADS Category 4: Suspicious for Malignancy. Signer Name: Kathleen Ferguson MD Signed: 07/12/2020 10:37 AM Workstation Name: [id number]
--- NOTE | 2020-07-12 13:12 | Discharge Summary ---
<JAXTomMAREKCammie - Last Filed: 07/12/20 13:18> Providers - Providers Date of Admission: 07/08/20 15:54 Attending physician: XU FERGUSON 07/08/20 07:55 Consult to Physician [CONS] Routine Comment: Consulting Provider: BON FORD Physician Instructions: Reason For Exam: r/o COVID, elevated markers 07/10/20 19:43 Physical Therapy Evaluation and Treat [CONS] Routine Comment: Reason For Exam: General debility/evaluate and treat/DC needs 07/11/20 09:51 Occupational Therapy Evaluate and Treat [CONS] Routine Comment: Reason For Exam: Limited mobility 07/11/20 10:52 Consult to Physician [CONS] Routine Comment: Consulting Provider: GAGE GARCÍA Physician Instructions: Reason For Exam: rule out malignancy vs abscess Primary care physician: LIVE TRUCK TECHNICIAN Hospitalization Condition: Stable Pertinent studies: 07/06 CXR: Previous CABG changes are suspected. Lungs/Pleura: No acute air space or interstitial disease. Additional findings: None. IMPRESSION: No acute findings. 07/09 CTA chest: 1. No CT evidence for central pulmonary embolism noting significant artifact as detailed above. 2. 3.5 cm heterogeneous cystic-appearing focus in the right chest wall deep to the right breast tissue. Finding could represent seroma, hematoma, or abscess. Necrotic chest wall lymph node or primary neoplasm not excluded. Consider further follow-up and evaluation as warranted. 07/09 left elbow x-ray: There are moderate degenerative changes. I see no evidence of fracture, dislocation or joint effusion. SOFT TISSUES: There is generalized subcutaneous edema. There are several small ossific densities overlying the periarticular soft tissues, probably related to heterotopic ossification or intra-articular loose bodies. 07/09 left should xray: There are advanced degenerative changes involving the glenohumeral joint. There are moderate degenerative changes involving the acromioclavicular joint and anterior acromion. Narrowing of the distance between the humeral head and acromion is likely related to a chronic rotator cuff tear. I see no evidence of fracture, dislocation or destructive lesion. SOFT TISSUES: No significant abnormality. 07/09 left wrist: BONES / JOINT(S): No acute fracture or subluxation. 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 Degenerative change at the radiocarpal joint with cystic degeneration at the scaphoid. Moderate DJD first carpometacarpal joint. SOFT TISSUES: No significant abnormality. 07/10 Bilateral lower extremity venous Doppler U/S: No sonographic evidence for DVT in either lower extremity. 07/12 breast u/s: Two heterogeneous oval masses in the left breast are suspicious for malignancy, one of which accounts for the area of palpable concern. Ultrasound-guided biopsy of both sites is recommended. 2. Bilateral mammogram is unable to be obtained as patient is currently inpatient. Recommend mammogram after patient's discharge Hospital course: This is a 59-year-old female with arthritis, CAD, HTN, hypothyroidism, [place] s/p 3 vessel CABG (approximately 2014) and breast cancer s/p a lumpectomy (2014) who presented to the emergency department on 07/07 with complaints of substernal chest tightness ongoing for 2 days and associated with ankle edema with no shortness of breath, nausea or vomiting or diaphoresis. In the emergency department labs were insignificant other than a BNP of 255 and her chest x-ray was negative for any acute process. She had a Lexiscan on 07/07 which was negative. On 07/07 she was also febrile and therefore transferred to [facility] to rule out COVID. Her COVID PCR has been negative x2 (07/08, 07/11) however continues to have elevated d-dimer. Of note patient recently had an incarcerated hernia repair about a month ago. She was started on Rocephin on 07/08 for urinary tract infection. However her urine (07/08) and blood cultures (07/07) are negative. Left elbow and shoulder x-rays obtained on 07/10 for severe left shoulder and elbow pain showed chronic degenerative changes with no acute abnormality and the wrist x-ray obtained on 07/10 showed no acute fracture or s ubluxation but chronic tearing of the scapholunate ligament with widening at the scapholunate space, degenerative change at the radiocarpal joint with cystic degeneration at the scaphoid. and moderate DJD first carpometacarpal joint. On 07/10 CT angios was negative for pulmonary embolism however with there was an incidental finding of a 3.5 cm heterogeneous cystic appearing focus in the right chest wall deep in the right breast tissue and breast surgery was consulted. She had a breast ultrasound on 07/12 which revealed two heterogeneous oval masses in the left breast which are suspicious for malignancy, one of which accounts for the area of palpable concern. Ultrasound-guided biopsy of both sites and outpatient mammogram is recommended. She will be discharged with home health PT services and will need to follow-up with Dr. García within 1 to 2 weeks of discharge. However as explained to the patient she may also follow-up with breast surgeon of her choosing. She was seen at [place] when her breast cancer was diagnosed. She will be discharged with a 2-day course of Augmentin for her urinary tract infection. Disposition: DC/TX-06 HOME UNDER HOME [facility] Time spent for discharge: 45 Core Measure Documentation - Palliative Care Palliative Care/ Comfort Measures: Not Applicable - Core Measures Any of the following diagnoses?: history only Exam - Constitutional Vitals: Temp Pulse Resp BP Pulse Ox 98.7 F 76 18 128/63 95 07/12/20 04:50 07/12/20 10:21 07/12/20 04:50 07/12/20 10:21 07/12/20 04:50 General appearance: Present: no acute distress - EENT Eyes: Present: PERRL, EOM intact ENT: hearing intact, clear oral mucosa - Neck Neck: Present: supple, normal ROM - Respiratory Respiratory effort: normal Respiratory: bilateral: CTA - Cardiovascular Rhythm: regular Heart Sounds: Present: S1 & S2. Absent: systolic murmur, diastolic murmur - Extremities Extremities: no ischemia, pulses intact, pulses symmetrical, normal temperature, normal color, Full ROM Extremity abnormal: edema (Nonpitting edema to right lower extremity) Peripheral Pulses: within normal limits - Abdominal General gastrointestinal: Present: soft, non-tender, non-distended, normal bowel sounds - Integumentary Integumentary: Present: clear, warm, dry - Musculoskeletal Musculoskeletal: strength equal bilaterally - Psychiatric Psychiatric: appropriate mood/affect, cooperative - Neurologic Neurologic: CNII-XII intact, no focal deficits, moves all extremities - Allied Health Allied health notes reviewed: nursing, PT, OT, social work, case management Plan Activity: advance as tolerated Diet: low fat, low cholesterol, low salt Special Instructions: record daily weights, record daily BP diary, physical therapy Additional Instructions: Follow-up with your primary care physician within 1 to 2 weeks of discharge and with Dr. García within 1 to 2 weeks of discharge. Report to nearest emergency department or contact primary care physician if you experience worsening symptoms. You will be discharged with a 2-day course of Augmentin to complete your antibiotic therapy for your urinary tract infection. You can follow-up with the breast surgeon of your choosing however you will be provided with Dr. García's office information. It has been recommended for you to obtain an outpatient mammogram and biopsy of the masses found in your breast. Follow up with: RICHA TORRES MD [Primary Care Provider] - 3-5 Days GAGE GARCÍA MD [Staff Physician] - 7 Days Prescriptions: amLODIPine 10 mg PO DAILY #30 tab Aspirin 325 mg PO QDAY #30 tablet Amoxicillin/K Clav Tab [Augmentin 875 mg] 1 tab PO Q12HR 2 Days #4 tab Rosuvastatin Calcium [Crestor] 40 mg PO DAILY #30 tab Gabapentin 300 mg PO BID #60 capsule Furosemide [Lasix TAB] 40 mg PO QDAY #30 tab Nitroglycerin [Nitrostat] 0.4 mg SL .Q5MIN PRN #14 tablet PRN Reason: Chest Pain Levothyroxine [Synthroid] 112 mcg PO QAM #30 tab traMADoL [Ultram 50 MG tab] 50 mg PO Q6HR PRN #15 tablet PRN Reason: Pain <MARTYXU Gates - Last Filed: 07/13/20 10:06> Providers - Providers Date of Admission: 07/08/20 15:54 Date of discharge: 07/12/20 Attending physician: XU FERGUSON 07/08/20 07:55 Consult to Physician [CONS] Routine Comment: Consulting Provider: BON FORD Physician Instructions: Reason For Exam: r/o COVID, elevated markers 07/10/20 19:43 Physical Therapy Evaluation and Treat [CONS] Routine Comment: Reason For Exam: General debility/evaluate and treat/DC needs 07/11/20 09:51 Occupational Therapy Evaluate and Treat [CONS] Routine Comment: Reason For Exam: Limited mobility 07/11/20 10:52 Consult to Physician [CONS] Routine Comment: Consulting Provider: GAGE GARCÍA Physician Instructions: Reason For Exam: rule out malignancy vs abscess Primary care physician: LIVE TRUCK TECHNICIAN Hospitalization Hospital course: I saw and evaluated the patient. I agree with the findings and the plan of care as documented in the Nurse Practitioner's~note, with the following corrections and additions. Chest pain, all workup negative, likely from underlying breast mass and GERD. Sepsis, likely from UTI. Exam - Constitutional Vitals: Temp Pulse Resp BP Pulse Ox 98.7 F 76 18 128/63 95 07/12/20 04:50 07/12/20 10:21 07/12/20 04:50 07/12/20 10:21 07/12/20 04:50
--- NOTE | 2020-07-12 15:23 | Progress Note ---
Assessment and Plan Cultures: Blood culture 07/07/2020 no growth today Urine culture 07/08/2020 pending SARS-CoV-2 PCR negative A/P: 85-year-old female past medical history arthritis, CAD, hypertension admitted with chest pains and found to be febrile. #Sepsis: fever resolved, likely secondary to UTI; likely due to left breast mass ?malignancy. CTA shows no consolidation. #Left chest wall cyst: Under breast tissue ? hematoma ? Abscess ? Malignancy. Discussed with Dr. Alexis on sure if this is breast tissue, looks more like soft tissue mass. Cyst is 3.5 x 3.2 x 3.4 cm under the left breast. Initial CT wrongly described cyst under right breast. Breast ultrasound on 07/12 which revealed two heterogeneous oval masses in the left breast which are suspicious for malignancy, one of which accounts for the area of palpable concern. Ultrasou nd-guided biopsy of both sites and outpatient mammogram is recommended. #Chest pain: Of unclear etiology, normal myocardial perfusion study, EF 70%. ? Left chest wall cyst. #Elevated CRP/d-dimer: CTA shows no PE, venous lower extremities ultrasound no DVT. Likely reactive due to possible chest wall infection. Recs: -f/u with breast surgeon for biopsy / mamagram -ok to d/c on augmentin 2 more day will sign off Carmen Beck MD [facility]) Office [phone] Subjective Date of service: 07/12/20 Principal diagnosis: Fever Interval history: Feels better, no fever x 24h, c/o left shoulder pain Objective - Exam Narrative Exam: Constitutional: Alert, cooperative. No acute distress Head, Ears, Nose: Normocephalic, atraumatic. External ears, nose normal OP: Clear Eyes: Conjunctivae/corneas clear. No icterus. No ptosis. Neck: Supple, no meningeal signs Cardiovascular: S1, S2 normal. Respiratory: Good air entry, clear to auscultation bilaterally GI: Soft, non-tender; bowel sounds normal. No peritoneal signs Musculoskeletal: +left shoulder edema and tenderness no heat Skin: No mass or rash, left breast inferior mass Hem/Lymphatic: No palpable cervical or supraclavicular nodes. No lymphangitis Psych: Mood ok. Affect normal Neurological: Awake, alert, oriented. No gross abnormality - Constitutional Vitals: Vital Signs Temp Pulse Resp BP Pulse Ox 98.7 F 76 18 128/63 95 07/12/20 04:50 07/12/20 10:21 07/12/20 04:50 07/12/20 10:21 07/12/20 04:50 Temperature -Last 24 Hours Temperature 98.7 F Temperature 99.4 F Temperature 99.1 F - Labs CBC & Chem 7: 07/09/20 04:12 07/09/20 04:12
== END 2020-07-12 15:40 | disposition home health service (06) | DRG 872 ==
LOC: ED 14:16 → 4A 07-07 00:11 → 3A 07-07 18:41 → OBSVTOIN 07-08 15:54 → 3A 07-11 17:02
PROVIDERS: ADMIT Internal Medicine; ATTEND Internal Medicine
DX: A41.9 Sepsis, unspecified organism (principal); N39.0 Urinary tract infection, site not specified; I10 Essential (primary) hypertension; M19.90 Unspecified osteoarthritis, unspecified site; C50.912 Malignant neoplasm of unspecified site of left female breast; E03.9 Hypothyroidism, unspecified; I25.10 Atherosclerotic heart disease of native coronary artery without angina pectoris; E78.5 Hyperlipidemia, unspecified; E66.9 Obesity, unspecified; M25.512 Pain in left shoulder; Z20.828 Contact with and (suspected) exposure to other viral communicable diseases; I25.2 Old myocardial infarction; Z95.5 Presence of coronary angioplasty implant and graft; Z68.32 Body mass index [BMI] 32.0-32.9, adult
CPT/HCPCS: 36415; 71045; 71275; 78452; 80048; 80076; 81001; 82550; 82553; 82728; 83615; 83880; 84145; 84484; 85025; 85027; 85379; 86140; 87040; 87086; 93005; 93017; 93970; 96365; 96375; 96376; G0378; A9502; J0696; J1644; J1650; J2270; J2405; J2785; J3246; J7050; Q9967; U0003-CS

== ENCOUNTER 2020-08-11 11:19 | Outpatient (CLI) | payer MEDICARE | END 2020-08-11 11:20 | disposition home or self-care (01) | LOC: MAMMO 11:19 | PROVIDERS: ATTEND Internal Medicine | DX: Z12.31 Encounter for screening mammogram for malignant neoplasm of breast (principal) | CPT/HCPCS: 77067 ==

== ENCOUNTER 2020-08-20 10:02 | Observation (INO) | payer MEDICARE ==
[2020-08-20] MEDS ORDERED: ASPIRIN 325 MG TAB PO ONE (10:29)
[2020-08-20 11:00] LABS: Basophils % (Auto) 0.8 % (0.0-1.8); Eosinophils # (Auto) 0.1 K/mm3 (0.0-0.4); Hematocrit 31.3 % (30.3-42.9); Hemoglobin 10.5 gm/dl (10.1-14.3); Lymphocytes # (Auto) 0.6 K/mm3 (1.2-5.4); Lymphocytes % (Auto) 14.6 % (13.4-35.0); Mean Corpuscular HGB Conc 34 % (30-34); Mean Corpuscular Volume 82 fl (79-97); Monocytes # (Auto) 0.5 K/mm3 (0.0-0.8); Monocytes % (Auto) 11.2 % (0.0-7.3); Platelet Count 238 K/mm3 (140-440); Red Blood Count 3.83 M/mm3 (3.65-5.03); Red Cell Distribution Width 18.8 % (13.2-15.2)
--- NOTE | 2020-08-20 11:07 | XRay Report ---
XR chest 1V ap INDICATION / CLINICAL INFORMATION: Chest Pain COMPARISON: 07/06/2020 FINDINGS: SUPPORT DEVICES: None. HEART / MEDIASTINUM: No significant abnormality. LUNGS / PLEURA: Lungs are clear. Costophrenic sulci are sharp. No pneumothorax. ADDITIONAL FINDINGS: Advanced degenerative changes of the shoulders. IMPRESSION: 1. No acute findings. Signer Name: Kwan Ackerman MD Signed: 08/20/2020 11:02 AM Workstation Name: [id number]
[2020-08-20 11:16] LABS: Blood Urea Nitrogen 15 mg/dL (7-17); Calcium 9.6 mg/dL (8.4-10.2); Hemolysis Index 16
[2020-08-20 11:22] LABS: BUN/Creatinine Ratio 21
--- NOTE | 2020-08-20 12:32 | Emergency Department Report ---
ED Chest Pain HPI - General Chief Complaint: Chest Pain Stated Complaint: CHEST TIGHTNESS PUI?: No Time Seen by Provider: 08/20/20 10:51 Source: patient Mode of arrival: Stretcher Limitations: No Limitations - History of Present Illness Initial Comments: Patient is a 85-year-old F [place] female with a past medical history of h ypertension coronary disease who had a CABG approximately 5 years ago presenting with some chest discomfort. Patient states she was eating breakfast at her assisted living and afterwards started having some pressure tightness in the center chest. There was no epigastric pain. Had some mild shortness of breath but no nausea vomiting. Patient denies cough congestion fevers chills nausea or vomiting. Patient's states pain decreased after receiving nitroglycerin in route. Blood pressure initially was in the 160s systolic but has improved after the nitroglycerin. A review of the patient's past medical history she had a exercise stress test month ago but no further intervention. Severity scale (0 -10): 3 - Related Data Home Medications Medication Instructions Recorded Confirmed Last Taken Acetaminophen [Tylenol] 500 mg PO PRN PRN 05/09/20 07/09/20 05/23/20 Tamoxifen Citrate 20 mg PO DAILY 05/09/20 07/09/20 05/24/20 06:00 Previous Rx's Medication Instructions Recorded Last Taken Type Celecoxib [celeBREX] 200 mg PO BID #4 capsule 05/24/20 Unknown Rx HYDROcodone/APAP 5-325 [[place] 1 each PO Q6HR PRN #10 tablet 05/24/20 Unknown Rx 5-325 mg TAB] Acetaminophen [Acetaminophen TAB] 650 mg PO Q4H PRN tablet 07/12/20 Unknown Rx Amoxicillin/K Clav Tab [Augmentin 1 tab PO Q12HR 2 Days #4 tab 07/12/20 Unknown Rx 875 mg] Aspirin 325 mg PO QDAY #30 tablet 07/12/20 Unknown Rx Furosemide [Lasix TAB] 40 mg PO QDAY #30 tab 07/12/20 Unknown Rx Gabapentin 300 mg PO BID #60 capsule 07/12/20 Unknown Rx Levothyroxine [Synthroid] 112 mcg PO QAM #30 tab 07/12/20 Unknown Rx Nitroglycerin [Nitrostat] 0.4 mg SL .Q5MIN PRN #14 tablet 07/12/20 Unknown Rx Rosuvastatin Calcium [Crestor] 40 mg PO DAILY #30 tab 07/12/20 Unknown Rx amLODIPine 10 mg PO DAILY #30 tab 07/12/20 Unknown Rx traMADoL [Ultram 50 MG tab] 50 mg PO Q6HR PRN #15 tablet 07/12/20 Unknown Rx Allergies Allergy/AdvReac Type Severity Reaction Status Date / Time No Known Allergies Allergy Verified 06/27/20 13:52 Heart Score - HEART Score History: Slightly suspicious EKG: Non-specific Age: > 65 Risk factors: > 3 risk factors or hx of atherosclerotic disease Troponin: < normal limit HEART Score: 5 ED Review of Systems ROS: Stated complaint: CHEST TIGHTNESS Other details as noted in HPI Constitutional: denies: chills, fever Eyes: denies: eye pain, eye discharge, vision change ENT: denies: ear pain, throat pain Respiratory: denies: cough, shortness of breath, wheezing Cardiovascular: chest pain. 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; good functional status) Hx Congestive Heart Failure: No Hx Diabetes: No Hx Liver Disease: No Hx Renal Disease: No Hx Arthritis: Yes Hx Asthma: No Hx COPD: No Additional medical history: Hypothyroidism - Surgical History Hx Open Heart Surgery: Yes Hx Breast Surgery: Yes Additional Surgical History: Lumpectomy (2014), Triple pass surgery (year unknown) - Social History Smoking Status: Never Smoker Substance Use Type: None - Medications Home Medications: Home Medications Medication Instructions Recorded Confirmed Last Taken Type Acetaminophen [Tylenol] 500 mg PO PRN PRN 05/09/20 07/09/20 05/23/20 History Tamoxifen Citrate 20 mg PO DAILY 05/09/20 07/09/20 05/24/20 06:00 History Celecoxib [celeBREX] 200 mg PO BID #4 capsule 05/24/20 07/09/20 Unknown Rx HYDROcodone/APAP 5-325 [[place] 1 each PO Q6HR PRN #10 tablet 05/24/20 07/09/20 Unknown Rx 5-325 mg TAB] Acetaminophen [Acetaminophen TAB] 650 mg PO Q4H PRN tablet 07/12/20 Unknown Rx Amoxicillin/K Clav Tab [Augmentin 1 tab PO Q12HR 2 Days #4 tab 07/12/20 Unknown Rx 875 mg] Aspirin 325 mg PO QDAY #30 tablet 07/12/20 Unknown Rx Furosemide [Lasix TAB] 40 mg PO QDAY #30 tab 07/12/20 Unknown Rx Gabapentin 300 mg PO BID #60 capsule 07/12/20 Unknown Rx Levothyroxine [Synthroid] 112 mcg PO QAM #30 tab 07/12/20 Unknown Rx Nitroglycerin [Nitrostat] 0.4 mg SL .Q5MIN PRN #14 tablet 07/12/20 Unknown Rx Rosuvastatin Calcium [Crestor] 40 mg PO DAILY #30 tab 07/12/20 Unknown Rx amLODIPine 10 mg PO DAILY #30 tab 07/12/20 Unknown Rx traMADoL [Ultram 50 MG tab] 50 mg PO Q6HR PRN #15 tablet 07/12/20 Unknown Rx ED Physical Exam - General Limitations: No Limitations General appearance: alert, in no apparent distress - Head Head exam: Present: atraumatic, normocephalic - Eye Eye exam: Present: normal appearance - ENT ENT exam: Present: mucous membranes moist - Neck Neck exam: Present: normal inspection - Respiratory Respiratory exam: Present: normal lung sounds bilaterally. Absent: respiratory distress, wheezes, rales, rhonchi - Cardiovascular Cardiovascular Exam: Present: regular rate, normal rhythm. Absent: systolic murmur, diastolic murmur, rubs, gallop - GI/Abdominal GI/Abdominal exam: Present: soft, normal bowel sounds. Absent: distended, tenderness, guarding, rebound - Extremities Exam Extremities exam: Present: normal inspection - Back Exam Back exam: Present: normal inspection - Neurological Exam Neurological exam: Present: alert, oriented X3 - Psychiatric Psychiatric exam: Present: normal affect, normal mood - Skin Skin exam: Present: warm, dry, intact, normal color. Absent: rash ED Course Vital Signs 08/20/20 08/20/20 08/20/20 10:13 10:28 10:31 Pulse Rate 96 H 78 82 Respiratory 18 12 12 Rate Blood Pressure 133/83 [Right] O2 Sat by Pulse 99 Oximetry 08/20/20 08/20/20 08/20/20 10:45 11:01 11:45 Pulse Rate 87 82 81 Respiratory 14 16 16 Rate Blood Pressure 166/86 [Right] O2 Sat by Pulse 97 Oximetry CEM score - Cem Score Age > 65: (1) Yes Aspirin use within the Past 7 Days: (1) Yes 3 or more CAD Risk Factors: (1) Yes 2 or more Angina events in past 24 hrs: (0) No Known CAD with more than 50% Stenosis: (0) No Elevated Cardiac Markers: (0) No ST Deviation Greater than 0.5mm: (0) No CEM Score: 3 ED Medical Decision Making - Lab Data Result diagrams: 08/20/20 10:41 08/20/20 10:41 Lab Results 08/20/20 08/20/20 Range/Units 10:41 10:41 WBC 4.3 L (4.5-11.0) K/mm3 RBC 3.83 (3.65-5.03) M/mm3 Hgb 10.5 (10.1-14.3) gm/dl Hct 31.3 (30.3-42.9) % MCV 82 (79-97) fl MCH 27 L (28-32) pg MCHC 34 (30-34) % RDW 18.8 H (13.2-15.2) % Plt Count 238 (140-440) K/mm3 Lymph % (Auto) 14.6 (13.4-35.0) % [place] % (Auto) 11.2 H (0.0-7.3) % Eos % (Auto) 3.0 (0.0-4.3) % Baso % (Auto) 0.8 (0.0-1.8) % Lymph # (Auto) 0.6 L (1.2-5.4) K/mm3 [place] # (Auto) 0.5 (0.0-0.8) K/mm3 Eos # (Auto) 0.1 (0.0-0.4) K/mm3 Baso # (Auto) 0.0 (0.0-0.1) K/mm3 Seg Neutrophils % 70.4 H (40.0-70.0) % Seg Neutrophils # 3.0 (1.8-7.7) K/mm3 Sodium 142 (137-145) mmol/L Potassium 3.8 (3.6-5.0) mmol/L Chloride 103.4 (98-107) mmol/L Carbon Dioxide 28 (22-30) mmol/L Anion Gap 14 mmol/L BUN 15 (7-17) mg/dL Creatinine 0.7 (0.6-1.2) mg/dL Estimated GFR > 60 ml/min BUN/Creatinine Ratio 21 % Glucose 90 (65-100) mg/dL Calcium 9.6 (8.4-10.2) mg/dL Troponin T < 0.010 (0.00-0.029) ng/mL - EKG Data -: EKG Interpreted by Az - EKG Data 08/20/20 12:44 EKG shows a sinus rhythm with a rate of 83. The axis is leftward intervals show a prolonged LA. 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 V4 V5 show some doming of the T wave however there is no other ST elevations and no ST depression. - Radiology Data [facility] [address] [place] [address] XRay Report Signed Patient: JACKIE SRIVASTAVA MR#: [id number] : 1935 Acct:[id number] Age/Sex: 85 / F ADM Date: 08/20/20 Loc: ED Attending Dr: Ordering Physician: MARY ZUNIGA MD Date of Service: 08/20/20 Procedure(s): XR chest 1V ap Accession Number(s): [id number] cc: MARY ZUNIGA MD Fluoro Time In Minutes: XR chest 1V ap INDICATION / CLINICAL INFORMATION: Chest Pain COMPARISON: 07/06/2020 FINDINGS: SUPPORT DEVICES: None. HEART / MEDIASTINUM: No significant abnormality. LUNGS / PLEURA: Lungs are clear. Costophrenic sulci are sharp. No pneumothorax. ADDITIONAL FINDINGS: Advanced degenerative changes of the shoulders. IMPRESSION: 1. No acute findings. Signer Name: Kwan Ackerman MD Signed: 08/20/2020 11:02 AM Workstation Name: [employer] - Medical Decision Making She has a heart score 5 and will be admitted to the hospital for further evaluation if serial enzymes. Critical care attestation.: If time is entered above; I have spent that time in minutes in the direct care of this critically ill patient, excluding procedure time. ED Disposition Clinical Impression: Chest pain, Hypertension Disposition: DC-09 OP ADMIT IP TO THIS HOSP Is pt being admited?: Yes Does the pt Need Aspirin: No Condition: Stable Referrals: PRIMARY CARE, [Primary Care Provider] - 3-5 Days Time of Disposition: 12:47
--- NOTE | 2020-08-20 22:32 | History and Physical Report ---
History of Present Illness Date of examination: 08/20/20 Date of admission: 08/20/20 13:10 Chief complaint: Chest pain since morning History of present illness: 85-year-old -[place] female with history of hypertension, coronary artery disease, CABG 5 years ago comes in for retrosternal chest pain. Patient was having breakfast in the morning and started having retrosternal chest pain. Patient lives at [facility] care facility. Chest pain is nonradiating. No shortness of breath. No palpitations. No diaphoresis. No cough or fever. EMS was called and patient was brought in by EMS. Patient had a exercise stress test about 1 month ago. Stress test was normal. - Past Medical History --Hypertension: Yes (took amlodipine 05/23 PM) --Heart Attack/AMI: Yes (s/p CABG approx. 5 yrs ago; good functional status) --Arthritis: Yes --Hypothyroidism - Surgical History --Open Heart Surgery: Yes --Breast Surgery: Yes Additional Surgical History: Lumpectomy (2014), Triple pass surgery (year unknown) - Social History Smoking Status: Never Smoker Substance Use Type: None --Family History Htn - Medications Home Medications: Home Medications Medication Instructions Recorded Confirmed Last Taken Type Acetaminophen [Tylenol] 500 mg PO PRN PRN 05/09/20 07/09/20 05/23/20 History Tamoxifen Citrate 20 mg PO DAILY 05/09/20 07/09/20 05/24/20 06:00 History Celecoxib [celeBREX] 200 mg PO BID #4 capsule 05/24/20 07/09/20 Unknown Rx HYDROcodone/APAP 5-325 [[place] 1 each PO Q6HR PRN #10 tablet 05/24/20 07/09/20 Unknown Rx 5-325 mg TAB] Acetaminophen [Acetaminophen TAB] 650 mg PO Q4H PRN tablet 07/12/20 Unknown Rx Amoxicillin/K Clav Tab [Augmentin 1 tab PO Q12HR 2 Days #4 tab 07/12/20 Unknown Rx 875 mg] Aspirin 325 mg PO QDAY #30 tablet 07/12/20 Unknown Rx Furosemide [Lasix TAB] 40 mg PO QDAY #30 tab 07/12/20 Unknown Rx Gabapentin 300 mg PO BID #60 capsule 07/12/20 Unknown Rx Levothyroxine [Synthroid] 112 mcg PO QAM #30 tab 07/12/20 Unknown Rx Nitroglycerin [Nitrostat] 0.4 mg SL .Q5MIN PRN #14 tablet 07/12/20 Unknown Rx Rosuvastatin Calcium [Crestor] 40 mg PO DAILY #30 tab 07/12/20 Unknown Rx amLODIPine 10 mg PO DAILY #30 tab 07/12/20 Unknown Rx traMADoL [Ultram 50 MG tab] 50 mg PO Q6HR PRN #15 tablet 07/12/20 Unknown Rx Review of Systems ROS: Stated complaint: CHEST TIGHTNESS Other details as noted in HPI Constitutional: denies: chills, fever Eyes: denies: eye pain, eye discharge, vision change ENT: denies: ear pain, throat pain Respiratory: denies: cough, shortness of breath, wheezing Cardiovascular: chest pain. denies: palpitations Endocrine: no symptoms reported Gastrointestinal: denies: abdominal pain, nausea, diarrhea Genitourinary: denies: urgency, dysuria, discharge Musculoskeletal: denies: back pain, joint swelling, arthralgia Skin: denies: rash, lesions Neurological: denies: headache, weakness, paresthesias Psychiatric: denies: anxiety, depression Hematological/Lymphatic: denies: easy bleeding, easy bruising Medications and Allergies Allergies Allergy/AdvReac Type Severity Reaction Status Date / Time No Known Allergies Allergy Verified 06/27/20 13:52 Home Medications Medication Instructions Recorded Confirmed Last Taken Type Acetaminophen [Tylenol] 500 mg PO PRN PRN 05/09/20 08/20/20 05/23/20 History Tamoxifen Citrate 20 mg PO DAILY 05/09/20 08/20/20 05/24/20 06:00 History Celecoxib [celeBREX] 200 mg PO BID #4 capsule 05/24/20 08/20/20 Unknown Rx HYDROcodone/APAP 5-325 [[place] 1 each PO Q6HR PRN #10 tablet 05/24/20 08/20/20 Unknown Rx 5-325 mg TAB] Acetaminophen [Acetaminophen TAB] 650 mg PO Q4H PRN tablet 07/12/20 08/20/20 Unknown Rx Amoxicillin/K Clav Tab [Augmentin 1 tab PO Q12HR 2 Days #4 tab 07/12/20 08/20/20 Unknown Rx 875 mg] Aspirin 325 mg PO QDAY #30 tablet 07/12/20 08/20/20 Unknown Rx Furosemide [Lasix TAB] 40 mg PO QDAY #30 tab 07/12/20 08/20/20 Unknown Rx Gabapentin 300 mg PO BID #60 capsule 07/12/20 08/20/20 08/19/20 Rx Levothyroxine [Synthroid] 112 mcg PO QAM #30 tab 07/12/20 08/20/20 08/19/20 Rx Nitroglycerin [Nitrostat] 0.4 mg SL .Q5MIN PRN #14 tablet 07/12/20 08/20/20 Unknown Rx Rosuvastatin Calcium [Crestor] 40 mg PO DAILY #30 tab 07/12/20 08/20/20 Unknown Rx amLODIPine 10 mg PO DAILY #30 tab 07/12/20 08/20/20 08/19/20 Rx traMADoL [Ultram 50 MG tab] 50 mg PO Q6HR PRN #15 tablet 07/12/20 08/20/20 08/19/20 Rx Exam - Constitutional Vitals: Temp Pulse Resp BP Pulse Ox 97.6 F 91 H 18 166/94 96 08/20/20 21:18 08/20/20 21:18 08/20/20 21:18 08/20/20 21:18 08/20/20 21:18 General appearance: Present: no acute distress, well-nourished - EENT Eyes: Present: PERRL ENT: hearing intact, clear oral mucosa - Neck Neck: Present: supple, normal ROM - Respiratory Respiratory effort: normal Respiratory: bilateral: CTA - Cardiovascular Heart rate: 78 Rhythm: regular Heart Sounds: Present: S1 & S2. Absent: rub, click - Extremities Extremities: no ischemia, pulses intact, pulses symmetrical, No edema Peripheral Pulses: within normal limits - Abdominal General gastrointestinal: Present: soft, non-tender, non-distended, normal bowel sounds Female genitourinary: Present: normal - Integumentary Integumentary: Present: clear, warm, dry - Musculoskeletal Musculoskeletal: gait normal, strength equal bilaterally - Psychiatric Psychiatric: appropriate mood/affect, intact judgment & insight - Neurologic Neurologic: CNII-XII intact, moves all extremities - Allied Health Allied health notes reviewed: nursing, case management HEART Score - HEART Score History: Moderately suspicious EKG: Non-specific Age: > 65 Risk factors: > 3 risk factors or hx of atherosclerotic disease Troponin: Troponin T < 0.010 ng/mL (0.00-0.029) 10/24/20 16:02 Troponin: < normal limit HEART Score: 6 - Critical Actions Critical Actions: 4-6 pts:12-16.6% risk of adverse cardiac event. Should be admitted Results - Labs CBC & Chem 7: 08/20/20 10:41 08/20/20 10:41 Labs: Laboratory Last Values WBC 4.3 K/mm3 (4.5-11.0) L 08/20/20 10:41 RBC 3.83 M/mm3 (3.65-5.03) 08/20/20 10:41 Hgb 10.5 gm/dl (10.1-14.3) 08/20/20 10:41 Hct 31.3 % (30.3-42.9) 08/20/20 10:41 MCV 82 fl (79-97) 08/20/20 10:41 MCH 27 pg (28-32) L 08/20/20 10:41 MCHC 34 % (30-34) 08/20/20 10:41 RDW 18.8 % (13.2-15.2) H 08/20/20 10:41 Plt Count 238 K/mm3 (140-440) 08/20/20 10:41 Lymph % (Auto) 14.6 % (13.4-35.0) 08/20/20 10:41 [place] % (Auto) 11.2 % (0.0-7.3) H 08/20/20 10:41 Eos % (Auto) 3.0 % (0.0-4.3) 08/20/20 10:41 Baso % (Auto) 0.8 % (0.0-1.8) 08/20/20 10:41 Lymph # (Auto) 0.6 K/mm3 (1.2-5.4) L 08/20/20 10:41 [place] # (Auto) 0.5 K/mm3 (0.0-0.8) 08/20/20 10:41 Eos # (Auto) 0.1 K/mm3 (0.0-0.4) 08/20/20 10:41 Baso # (Auto) 0.0 K/mm3 (0.0-0.1) 08/20/20 10:41 Seg Neutrophils % 70.4 % (40.0-70.0) H 08/20/20 10:41 Seg Neutrophils # 3.0 K/mm3 (1.8-7.7) 08/20/20 10:41 Sodium 142 mmol/L (137-145) 08/20/20 10:41 Potassium 3.8 mmol/L (3.6-5.0) 08/20/20 10:41 Chloride 103.4 mmol/L (98-107) 08/20/20 10:41 Carbon Dioxide 28 mmol/L (22-30) 08/20/20 10:41 Anion Gap 14 mmol/L 08/20/20 10:41 BUN 15 mg/dL (7-17) 08/20/20 10:41 Creatinine 0.7 mg/dL (0.6-1.2) 08/20/20 10:41 Estimated GFR > 60 ml/min 08/20/20 10:41 BUN/Creatinine Ratio 21 % 08/20/20 10:41 Glucose 90 mg/dL (65-100) 08/20/20 10:41 Calcium 9.6 mg/dL (8.4-10.2) 08/20/20 10:41 Troponin T < 0.010 ng/mL (0.00-0.029) 08/20/20 16:02 Short CBC 08/20/20 Range/Units 10:41 WBC 4.3 L (4.5-11.0) K/mm3 Hgb 10.5 (10.1-14.3) gm/dl Hct 31.3 (30.3-42.9) % Plt Count 238 (140-440) K/mm3 BMP 08/20/20 10:41 Sodium 142 Potassium 3.8 Chloride 103.4 Carbon Dioxide 28 BUN 15 Creatinine 0.7 Glucose 90 Calcium 9.6 Cardiac Enzymes 08/20/20 08/20/20 08/21/20 Range/Units 10:41 16:02 00:14 Troponin T < 0.010 < 0.010 < 0.010 (0.00-0.029) ng/mL - Imaging and Cardiology EKG: report reviewed (Normal sinus rhythm no acute ST-T wave changes) Chest x-ray: report reviewed (No acute findings) [place]/IV: IV Catheter Type [Right INT / Saline Lock Forearm] Assessment and Plan Advance Directives: Yes (Full code) VTE prophylaxis?: Chemical Plan of care discussed with patient/family: Yes - Patient Problems (1) Acute coronary syndrome Current Visit: Yes Status: Acute Plan to address problem: Serial troponins and patient may be discharged tomorrow because the patient had a recent stress test. Which was negative. (2) Hypertension Current Visit: Yes Status: Chronic Qualifiers: Hypertension type: essential hypertension Qualified Code(s): I10 - Essential (primary) hypertension Plan to address problem: Continue antihypertensives (3) Hypothyroidism Current Visit: No Status: Chronic Plan to address problem: Check TSH Continue levothyroxine (4) Peripheral neuropathy Current Visit: Yes Status: Chronic Qualifiers: Peripheral neuropathy type: polyneuropathy, unspecified Qualified Code(s): G62.9 - Polyneuropathy, unspecified Plan to address problem: Continue gabapentin (5) Hyperlipidemia Current Visit: Yes Status: Chronic Qualifiers: Hyperlipidemia type: mixed hyperlipidemia Qualified Code(s): E78.2 - Mixed hyperlipidemia Plan to address problem: Continue statins (6) CHF (congestive heart failure) Current Visit: Yes Status: Chronic Qualifiers: Heart failure type: combined systolic and diastolic Plan to address problem: Continue Lasix (7) DVT prophylaxis Current Visit: No Status: Acute Plan to address problem: Patient on heparin and GI prophylaxis
[2020-08-20] MEDS ORDERED: traMADol 50 MG TAB PO PRN (22:38)
[2020-08-20] MEDS ORDERED: ACETAMINOPHEN 325 MG TAB PO PRN ×2 (22:38→22:40)
[2020-08-20] MEDS ORDERED: HYDROcodone/ACETAMINOPHEN 5-325 MG TAB PO PRN (22:38)
[2020-08-20] MEDS ORDERED: NITROGLYCERIN 0.4 MG TAB SUBL SL PRN (22:38)
[2020-08-20] MEDS ORDERED: ONDANSETRON 4 MG/2 ML INJ IV PRN (22:40)
[2020-08-20] MEDS ORDERED: HYDROmorphone 1 MG/1 ML INJ IV PRN (22:40)
[2020-08-20] MEDS: GABAPENTIN 300 MG CAP PO SCH (23:17)
[2020-08-20] MEDS: FAMOTIDINE 20 MG/2 ML INJ IV SCH (23:18)
[2020-08-20] MEDS: amLODIPine 10 MG TAB PO SCH (23:19)
[2020-08-21] MEDS: LEVOTHYROXINE 112 MCG TAB PO SCH (05:32)
[2020-08-21 07:52] LABS: Basophils % (Auto) 0.6 % (0.0-1.8); Eosinophils # (Auto) 0.2 K/mm3 (0.0-0.4); Hematocrit 35.1 % (30.3-42.9); Hemoglobin 11.5 gm/dl (10.1-14.3); Lymphocytes # (Auto) 0.7 K/mm3 (1.2-5.4); Lymphocytes % (Auto) 23.4 % (13.4-35.0); Mean Corpuscular HGB Conc 33 % (30-34); Mean Corpuscular Volume 82 fl (79-97); Monocytes # (Auto) 0.4 K/mm3 (0.0-0.8); Monocytes % (Auto) 13.9 % (0.0-7.3); Platelet Count 266 K/mm3 (140-440); Red Blood Count 4.26 M/mm3 (3.65-5.03); Red Cell Distribution Width 19.4 % (13.2-15.2)
[2020-08-21 08:12] LABS: Alanine Aminotransferase 9 units/L (7-56); Albumin 3.5 g/dL (3.9-5); Blood Urea Nitrogen 10 mg/dL (7-17); Calcium 9.6 mg/dL (8.4-10.2); Hemolysis Index 5
[2020-08-21 08:13] LABS: BUN/Creatinine Ratio 17
--- NOTE | 2020-08-21 08:27 | Progress Note ---
Assessment and Plan Assessment and plan: --Atypical chest pain/probably noncardiac Current Visit: Yes Status: Acute Plan to address problem: Improved, patient had negative stress test on 07/07/2020 EF 70%, patient's cardiac enzymes troponin x4 negative Chest pain probably secondary to GERD Managed with Pepcid Today's stress test ordered was canceled --GERD; probably the cause of chest pain Current Visit: Yes Status: Chronic Plan to address problem: Pepcid -- Hypertension Current Visit: Yes Status: Chronic Plan to address problem: Continue antihypertensives As needed medications -- Hypothyroidism Current Visit: No Status: Chronic Plan to address problem: Continue levothyroxine --Peripheral neuropathy Current Visit: Yes Status: Chronic Plan to address problem: Continue gabapentin, supportive care --Dyslipidemia Current Visit: Yes Status: Chronic Plan to address problem: Continue statins, low-cholesterol diet --CHF (congestive heart failure) Current Visit: Yes Status: Chronic Plan to address problem: Continue Lasix -- DVT prophylaxis Current Visit: No Status: Acute Plan to address problem: Patient on heparin and GI prophylaxis Initially I plan to discharge the patient However the assisted living facility, required COVID-19 test, test is requested Possible discharge tomorrow if stable History Interval history: I have seen and examined the patient at the bedside this morning Patient's chart and medications reviewed Patient was admitted with chest pain and stress test was scheduled for today morning However she had recent negative stress done on 07/07/2020 ejection fraction 70% At the time of my evaluation patient denies any chest pain or shortness of breath Patient is not in acute distress vital signs reviewed Hospitalist Physical - Constitutional Vitals: Temp Pulse Resp BP Pulse Ox 97.9 F 76 20 140/71 99 08/21/20 07:46 08/21/20 07:46 08/21/20 07:46 08/21/20 07:46 08/21/20 07:46 General appearance: Present: no acute distress, well-nourished - EENT Eyes: Present: PERRL, EOM intact - Neck Neck: Present: supple, normal ROM - Respiratory Respiratory effort: normal Respiratory: bilateral: diminished, negative: rales, rhonchi, wheezing - Cardiovascular Rhythm: regular Heart Sounds: Present: S1 & S2 - Extremities Extremities: no ischemia, No edema - Abdominal General gastrointestinal: soft, non-tender, non-distended, normal bowel sounds - Integumentary Integumentary: Present: clear, warm - Psychiatric Psychiatric: appropriate mood/affect, cooperative - Neurologic Neurologic: CNII-XII intact, moves all extremities HEART Score - HEART Score EKG: Non-specific Age: > 65 Risk factors: > 3 risk factors or hx of atherosclerotic disease Troponin: Troponin T < 0.010 ng/mL (0.00-0.029) 08/21/20 06:59 Troponin: < normal limit - Critical Actions Critical Actions: 4-6 pts:12-16.6% risk of adverse cardiac event. Should be admitted Results - Labs CBC & Chem 7: 08/21/20 06:59 08/21/20 06:59 Labs: Laboratory Last Values WBC 3.2 K/mm3 (4.5-11.0) L 08/21/20 06:59 RBC 4.26 M/mm3 (3.65-5.03) 08/21/20 06:59 Hgb 11.5 gm/dl (10.1-14.3) 08/21/20 06:59 Hct 35.1 % (30.3-42.9) 08/21/20 06:59 MCV 82 fl (79-97) 08/21/20 06:59 MCH 27 pg (28-32) L 08/21/20 06:59 MCHC 33 % (30-34) 08/21/20 06:59 RDW 19.4 % (13.2-15.2) H 08/21/20 06:59 Plt Count 266 K/mm3 (140-440) 08/21/20 06:59 Lymph % (Auto) 23.4 % (13.4-35.0) 08/21/20 06:59 [place] % (Auto) 13.9 % (0.0-7.3) H 08/21/20 06:59 Eos % (Auto) 6.0 % (0.0-4.3) H 08/21/20 06:59 Baso % (Auto) 0.6 % (0.0-1.8) 08/21/20 06:59 Lymph # (Auto) 0.7 K/mm3 (1.2-5.4) L 08/21/20 06:59 [place] # (Auto) 0.4 K/mm3 (0.0-0.8) 08/21/20 06:59 Eos # (Auto) 0.2 K/mm3 (0.0-0.4) 08/21/20 06:59 Baso # (Auto) 0.0 K/mm3 (0.0-0.1) 08/21/20 06:59 Seg Neutrophils % 56.1 % (40.0-70.0) 08/21/20 06:59 Seg Neutrophils # 1.8 K/mm3 (1.8-7.7) 08/21/20 06:59 Sodium 144 mmol/L (137-145) 08/21/20 06:59 Potassium 3.4 mmol/L (3.6-5.0) L 08/21/20 06:59 Chloride 105.3 mmol/L (98-107) 08/21/20 06:59 Carbon Dioxide 29 mmol/L (22-30) 08/21/20 06:59 Anion Gap 13 mmol/L 08/21/20 06:59 BUN 10 mg/dL (7-17) 08/21/20 06:59 Creatinine 0.6 mg/dL (0.6-1.2) 08/21/20 06:59 Estimated GFR > 60 ml/min 08/21/20 06:59 BUN/Creatinine Ratio 17 % 08/21/20 06:59 Glucose 81 mg/dL (65-100) 08/21/20 06:59 Hemoglobin A1c 5.7 % (4-6) 08/21/20 06:59 Calcium 9.6 mg/dL (8.4-10.2) 08/21/20 06:59 Total Bilirubin 0.30 mg/dL (0.1-1.2) 08/21/20 06:59 AST 20 units/L (5-40) 08/21/20 06:59 ALT 9 units/L (7-56) 08/21/20 06:59 Alkaline Phosphatase 96 units/L (35-129) 08/21/20 06:59 Troponin T < 0.010 ng/mL (0.00-0.029) 08/21/20 06:59 Total Protein 7.4 g/dL (6.3-8.2) 08/21/20 06:59 Albumin 3.5 g/dL (3.9-5) L 08/21/20 06:59 Albumin/Globulin Ratio 0.9 % 08/21/20 06:59 Moncada/IV: IV Catheter Type [Right INT / Saline Lock Forearm] Active Medications - Current Medications Current Medications: Generic Name Dose Route Start Last Admin Trade Name Freq PRN Reason Stop Dose Admin Acetaminophen 650 mg 08/20/20 22:40 Tylenol PO Q4H PRN Pain MILD(1-3)/Fever >100.5/[place]SON Hydrocodone Bitart/Acetaminophen 1 each 08/20/20 22:38 Edmond 5/325 PO Q6HR PRN Pain , Severe (7-10) Amlodipine Besylate 10 mg 08/20/20 23:12 08/20/20 23:19 Amlodipine PO 10 mg DAILY JESSICA Administration Aspirin 325 mg 08/21/20 10:00 Aspirin PO QDAY [facility] Atorvastatin Calcium 80 mg 08/21/20 22:00 Lipitor PO QHS JESSICA Famotidine 20 mg 08/20/20 23:00 08/20/20 23:18 Pepcid IV 20 mg BID JESSICA Administration Furosemide 40 mg 08/21/20 10:00 Lasix PO QDAY [facility] Gabapentin 300 mg 08/20/20 23:00 08/20/20 23:17 Gabapentin PO 300 mg BID [facility] Administration Heparin Sodium (Porcine) 5,000 unit 08/21/20 10:00 Heparin SUB-Q Q12HR [facility] Hydromorphone HCl 0.5 mg 08/20/20 22:40 Dilaudid IV Q3H PRN Pain , Severe (7-10) Levothyroxine Sodium 112 mcg 08/21/20 06:00 08/21/20 05:32 Synthroid PO 112 mcg QAM@0600 [facility] Administration Miscellaneous Medication 20 mg 08/21/20 10:00 Tamoxifen Citrate [Tamoxifen Citrate] PO DAILY [facility] Nitroglycerin 0.4 mg 08/20/20 22:38 Nitrostat SL .Q5MIN PRN Chest Pain Ondansetron HCl 4 mg 08/20/20 22:40 Zofran IV Q8H PRN Nausea And Vomiting Potassium Chloride 20 meq 08/21/20 10:00 K-Dur PO QDAY [facility] Sodium Chloride 10 ml 08/20/20 23:00 08/20/20 23:18 Sodium Chloride Flush Syringe 10 Ml IV 10 ml BID JESSICA Administration Sodium Chloride 10 ml 08/20/20 22:40 Sodium Chloride Flush Syringe 10 Ml IV PRN PRN LINE FLUSH Tramadol HCl 50 mg 08/20/20 22:38 Ultram PO Q6HR PRN Pain, Moderate (4-6)
--- NOTE | 2020-08-21 08:39 | Discharge Summary ---
Providers - Providers Date of Admission: 08/20/20 13:10 Date of discharge: 08/21/20 Attending physician: GEORGE ROGERS Primary care physician: RICHA TORRES MD Hospitalization Condition: Stable Exam - Constitutional Vitals: Temp Pulse Resp BP Pulse Ox 97.9 F 76 20 140/71 99 08/21/20 07:46 08/21/20 07:46 08/21/20 07:46 08/21/20 07:46 08/21/20 07:46 Plan Follow up with: RICHA TORRES MD [Primary Care Provider] - 3-5 Days
[2020-08-21] MEDS ORDERED: TAMOXIFEN CITRATE 20 MG PO SCH (10:00)
[2020-08-21] MEDS ORDERED: amLODIPine 10 MG TAB PO SCH (10:00)
[2020-08-21] MEDS ORDERED: NON-FORMULARY EACH (Rosuvastatin Calcium [Crestor] 40 MG) PO SCH (10:00)
[2020-08-21] MEDS: FUROSEMIDE 40 MG TAB PO SCH (11:29)
[2020-08-21] MEDS: FAMOTIDINE 20 MG/2 ML INJ IV SCH ×2 (11:29→21:51)
[2020-08-21] MEDS: amLODIPine 10 MG TAB PO SCH (11:31)
[2020-08-21] MEDS: GABAPENTIN 300 MG CAP PO SCH ×2 (11:31→21:50)
[2020-08-21] MEDS: POTASSIUM CHLORIDE ER 20 MEQ TAB PO SCH (11:32)
[2020-08-21] MEDS: ASPIRIN 325 MG TAB PO SCH (11:32)
[2020-08-21] MEDS ORDERED: MAGNESIUM HYDROXIDE (MOM) ORAL LIQD UDC PO PRN (12:19)
[2020-08-21] MEDS: HEPARIN 5,000 UNIT/1 ML VIAL SUB-Q SCH (21:45)
[2020-08-22] MEDS: LEVOTHYROXINE 112 MCG TAB PO SCH (05:48)
[2020-08-22] MEDS: ASPIRIN 325 MG TAB PO SCH (09:40)
[2020-08-22] MEDS: amLODIPine 10 MG TAB PO SCH (09:40)
[2020-08-22] MEDS: FUROSEMIDE 40 MG TAB PO SCH (09:40)
[2020-08-22] MEDS: FAMOTIDINE 20 MG/2 ML INJ IV SCH (09:40)
[2020-08-22] MEDS: HEPARIN 5,000 UNIT/1 ML VIAL SUB-Q SCH ×2 (09:40→10:00)
[2020-08-22] MEDS: POTASSIUM CHLORIDE ER 20 MEQ TAB PO SCH (09:41)
[2020-08-22] MEDS: GABAPENTIN 300 MG CAP PO SCH (09:49)
[2020-08-22 13:52] VITALS: BP 102/55
--- NOTE | 2020-08-22 16:40 | Discharge Summary ---
Providers - Providers Date of Admission: 08/20/20 13:10 Attending physician: GEORGE ROGERS Primary care physician: SNOWBOARD INSTRUCTOR Hospitalization Reason for admission: Chest pain Condition: Stable Pertinent studies: Chest x-ray; no acute abnormality Hospital course: Chest pain since morning 85-year-old female patient with history of hypertension, coronary artery disease, CABG 5 years ago comes in for retrosternal chest pain. Patient was initially evaluated , Admitted to the hospital symptomatically managed , patient had negative stress test 1 month ago , symptomatically managed Home medications resumed , patient symptoms significantly improved , did not need cardiology evaluation as patient became well Today patient is comfortable no new complaints denies chest pain or shortness of breath , Vital signs reviewed stable Physical examination is unremarkable prior to discharge Discharge diagnosis; --Atypical chest pain/probably noncardiac Current Visit: Yes Status: Acute Resolved ,patient had negative stress test on 07/07/2020 EF 70%, probably noncardiac secondary to GERD --GERD; probably the cause of chest pain Current Visit: Yes Status: Chronic Pepcid -- Hypertension Current Visit: Yes Status: Chronic Plan to address problem: Continue antihypertensives -- Hypothyroidism Current Visit: No Status: Chronic Plan to address problem: Continue levothyroxine --Peripheral neuropathy Current Visit: Yes Status: Chronic Plan to address problem: Continue gabapentin, supportive care --Dyslipidemia Current Visit: Yes Status: Chronic Plan to address problem: Continue statins, low-cholesterol diet --CHF (congestive heart failure) Current Visit: Yes Status: Chronic Plan to address problem: Continue Lasix Patient is hemodynamically and clinically stable at discharge Disposition: DC/TX-70 ANOTHER TYPE THCARE Time spent for discharge: 32 min Core Measure Documentation - Palliative Care Palliative Care/ Comfort Measures: Not Applicable - Core Measures Any of the following diagnoses?: none Exam - Constitutional Vitals: Temp Pulse Resp BP Pulse Ox 98.3 F 94 H 18 102/55 100 08/22/20 13:50 08/22/20 13:50 08/22/20 13:50 08/22/20 13:50 08/22/20 13:50 General appearance: Present: no acute distress, well-nourished - EENT Eyes: Present: PERRL, EOM intact - Neck Neck: Present: supple, normal ROM - Respiratory Respiratory effort: normal Respiratory: bilateral: diminished, negative: rales, rhonchi, wheezing - Cardiovascular Rhythm: regular Heart Sounds: Present: S1 & S2 - Extremities Extremities: no ischemia, No edema - Abdominal General gastrointestinal: Present: soft, non-tender, non-distended, normal bowel sounds - Integumentary Integumentary: Present: clear, warm - Musculoskeletal Musculoskeletal: strength equal bilaterally, generalized weakness - Psychiatric Psychiatric: appropriate mood/affect, cooperative Plan Activity: advance as tolerated, fall precautions Diet: other (Cardiac diet) Additional Instructions: You have worsening symptoms contact MD or go to emergency room. Advised to see private coverstitch machine operator in 1 to 2 weeks or as needed Follow up with: PRIMARY CARE, [Primary Care Provider] - 3-5 Days Prescriptions: Rosuvastatin Calcium [Crestor] 40 mg PO DAILY #30 tab HYDROcodone/APAP 5-325 [Searcy 5-325 mg TAB] 1 each PO Q6HR PRN #10 tablet PRN Reason: Pain , Severe (7-10) traMADoL [Ultram 50 MG tab] 50 mg PO Q6HR PRN #15 tablet PRN Reason: Pain
== END 2020-08-22 18:03 | disposition other institution (70) ==
LOC: ED 10:02 → 4A 13:10
PROVIDERS: ADMIT Internal Medicine; ATTEND Internal Medicine
DX: I24.9 Acute ischemic heart disease, unspecified (principal); Z20.828 Contact with and (suspected) exposure to other viral communicable diseases; I11.0 Hypertensive heart disease with heart failure; I50.9 Heart failure, unspecified; E03.9 Hypothyroidism, unspecified; G62.9 Polyneuropathy, unspecified; E78.2 Mixed hyperlipidemia; R73.9 Hyperglycemia, unspecified; M19.90 Unspecified osteoarthritis, unspecified site; Z95.1 Presence of aortocoronary bypass graft; Z98.890 Other specified postprocedural states; Z79.82 Long term (current) use of aspirin
CPT/HCPCS: 36415; 71045; 80048; 80053; 83036; 84484; 85025; 93005; 96372; 96374; 96376; 99285; G0378; J1644; U0003

== ENCOUNTER 2021-03-21 13:06 | Outpatient (CLI) | payer MEDICARE ==
--- NOTE | 2021-03-21 16:29 | Ultrasound Report ---
ULTRASOUND GUIDED BIOPSY OF TWO LEFT BREAST MASSES, 03/21/2021 CLINICAL INFORMATION / INDICATION: N63.20 BREAST LUMP/ Z85.3 PERSONAL HX OF BREAST CA. COMPARISON: Limited left breast ultrasound performed on 07/12/2020. PROCEDURE: Risks, benefits, and indications to the procedure were discussed with the patient in detail, includin g bleeding, infection, hematoma formation, and inadequate tissue sampling. The patient agreed to proc eed with both verbal and written consent. A timeout procedure was performed with two patient identifi ers. Preliminary ultrasound demonstrated interval enlargement of the previously seen mass in the 5:00 posi tion from 2.9 x 2.9 x 3.6 cm to 3.6 x 2.6 x 3.8 cm. The previously seen mass in the 2:00 position gabbi sured 3.4 x 2.9 x 3.9 cm, previously 3.1 x 2.6 x 3.0 cm. The breast was prepped and draped in the usu al sterile fashion. Lidocaine 1% with and without epinephrine were used for local anesthesia. Under d irect ultrasound guidance, multiple core samples were obtained of each mass with the 2:00 mass biopsi ed first and labeled as left breast mass 1 and the 5:00 mass biopsied second and labeled left breast mass 2. Biopsy clips were placed within each mass. Manual pressure was held and hemostasis was establ ished. A sterile dressing was applied to the skin. The patient tolerated the procedure without difficulty. No complications were encountered. Postbiopsy instructions were discussed with the patient and given in writing. Specimens were sent to pathology. IMPRESSION: 1. Interval enlargement of the previously described left breast masses. 2. Technically successful ultrasound guided biopsy of these masses. Biopsy results are pending and will be reported in an addendum. Signer Name: Ronal Heard MD Signed: 03/21/2021 4:25 PM Workstation Name: [id number]
== END 2021-03-21 13:07 | disposition home or self-care (01) ==
LOC: SPVWC 13:06
PROVIDERS: ATTEND Surgery
DX: N63.21 Unspecified lump in the left breast, upper outer quadrant (principal); N63.23 Unspecified lump in the left breast, lower outer quadrant; N64.89 Other specified disorders of breast; E78.5 Hyperlipidemia, unspecified; I25.110 Atherosclerotic heart disease of native coronary artery with unstable angina pectoris; G62.9 Polyneuropathy, unspecified; Z85.3 Personal history of malignant neoplasm of breast; Z79.899 Other long term (current) drug therapy; Z79.82 Long term (current) use of aspirin; Z86.39 Personal history of other endocrine, nutritional and metabolic disease; E03.9 Hypothyroidism, unspecified; Z98.49 Cataract extraction status, unspecified eye; Z95.1 Presence of aortocoronary bypass graft; Z98.890 Other specified postprocedural states; M19.90 Unspecified osteoarthritis, unspecified site
CPT/HCPCS: 88305; 88341; 88342

== ENCOUNTER 2021-05-18 14:37 | Outpatient (CLI) | payer MEDICARE ==
--- NOTE | 2021-05-18 16:16 | Mammography Report ---
DEXA BONE DENSITY SCAN INDICATION / CLINICAL INFORMATION: OTHER SPECIFIED DISORDER OF BONE DENSITY OF MULTIPLE SITES. 86 years Female COMPARISON: None available. LUMBAR SPINE, L1-L4: - Bone mineral density (BMD) = 1.676 g/cm2. - T-score = 4.8 - Z-score = Not calculated Change (%) since most recent prior (if available): None available. LEFT FOREARM: - Bone mineral density (BMD) = 0.441 g/cm2. - T-score = -2.4 - Z-score = Not calculated Change (%) since most recent prior (if available): None available. IMPRESSION: 1. WHO Classification: Osteopenia. Fracture Risk: Increased. Note: 10-Year Fracture Risk (FRAX) not Reported. This DEXA unit lacks FRAX functionality. BMD Reporting Guidelines (ISCD, 2015) BMD Reporting in Postmenopausal Women and in Men Age 50 and Older - T-scores are preferred. - The WHO densitometric classification is applicable. BMD Reporting in Females Prior to Menopause and in Males Younger Than Age 50 - Z-scores, not T-scores, are preferred. This is particularly important in children. - A Z-score of -2.0 or lower is defined as below the expected range for age, and a Z-score above -2.0 is within the expected range for age. - Osteoporosis cannot be diagnosed in men under age 50 on the basis of BMD alone. - The WHO diagnostic criteria may be applied to women in the menopausal transition. http://www.iscd.org/official-positions/3765-ptvo-yiilzeki-positions-adult/ Signer Name: Ronal Heard MD Signed: 05/18/2021 4:12 PM Workstation Name: [id number]
== END 2021-05-18 14:38 | disposition home or self-care (01) ==
LOC: SPVWC 14:37
PROVIDERS: ATTEND Internal Medicine Hematology & Oncology
DX: M85.89 Other specified disorders of bone density and structure, multiple sites (principal)
CPT/HCPCS: 77080